=== PATIENT | male | born 1970 | race African-American/Black ===

== ENCOUNTER 2019-02-16 09:04 | Inpatient (IN) | payer OTHER ==
[2019-02-16 09:51] VITALS: BMI 36.4
--- NOTE | 2019-02-16 10:18 | HP ---
CIWA Score Nausea/Vomitin Muscle Tremors: 2 Anxiety: 2 Agitation: 2 Paroxysmal Sweats: 1-Minimal Palms Moist Orientation: 0-Oriented Tacttile Disturbances: 1-Very Mild Itch/Numbness Auditory Disturbances: 1-Very Mild Visual Disturbances: 0-None Headache: 2-Mild CIWA-Ar Total Score: 13 - Admission Criteria OASAS Guidelines: Admission for Medically Managed Detox: Requires at least one of the followin. CIWA greater than 12 2. Seizures within the past 24 hours 3. Delirium tremens within the past 24 hours 4. Hallucinations within the past 24 hours 5. Acute intervention needed for co occurring medical disorder 6. Acute intervention needed for co occurring psychiatric disorder 7. Severe withdrawal that cannot be handled at a lower level of care (continued vomiting, continued diarrhea, abnormal vital signs) requiring intravenous medication and/or fluids 8. Admission ROS [facility] - HPI Chief Complaint: i need help to stop drinking alcohol,cocaine,xanax,marijuana Allergies/Adverse Reactions: Allergies Allergy/AdvReac Type Severity Reaction Status Date / Time No Known Allergies Allergy Verified 02/16/19 09:46 History of Present Illness: this 48 years old male with alcohol,cocaine,marijuana and xanax dependence seeking detox,withdrawal symptom, multiple admissions in detox,last 04/18 did not recall facility keep relapsing syncope nicotine dependence 1/2 pack ,requesting nicotine gum insomnia longest sobriety 18 months plan for rehab after detox - Ebola screening Have you traveled outside of the country in the last 21 days: No Have you had contact with anyone from an Ebola affected area: No Do you have a fever: No - Review of Systems Constitutional: Loss of Appetite, Malaise, Night Sweats, Changes in sleep, Weakness EENT: reports: Nose Congestion Respiratory: reports: No Symptoms reported GI: reports: Nausea, Poor Appetite, Abdominal cramping : reports: No Symptoms Reported Musculoskeletal: reports: Back Pain, Muscle Pain Integumentary: reports: Dryness Neuro: reports: Headache, Tremors Endocrine: reports: No Symptoms Reported Hematology: reports: No Symptoms Reported Psychiatric: reports: No Sypmtoms Reported, Judgement Intact, Mood/Affect Appropiate, Orientated x3, other (insomnia) Other Systems: Reviewed and Negative Patient History - Patient Medical History Hx Anemia: No Hx Asthma: No Hx Chronic Obstructive Pulmonary Disease (COPD): No Hx Cancer: No Hx Cardiac Disorders: No Hx Congestive Heart Failure: No Hx Hypertension: No Hx Hypercholesterolemia: No Hx Pacemaker: No HX Cerebrovascular Accident: No Hx Seizures: No Hx Dementia: No Hx Diabetes: No Hx Gastrointestinal Disorders: No Hx Liver Disease: No Hx Genitourinary Disorders: No Hx Sexually Transmitted Disorders: No Hx Renal Disease (ESRD): No Hx Thyroid Disease: No Hx Human Immunodeficiency Virus (HIV): No (last 12/20 negative) Hx Hepatitis C: No Hx Depression: No Hx Suicide Attempt: No Hx Bipolar Disorder: No Hx Schizophrenia: No Other Medical History: no suicidal,no homicidal,insomnia - Patient Surgical History Past Surgical History: No Hx Neurologic Surgery: No Hx Cataract Extraction: No Hx Cardiac Surgery: No Hx Lung Surgery: No Hx Breast Surgery: No Hx Breast Biopsy: No Hx Appendectomy: Yes (1983) Hx Cholecystectomy: No Hx Genitourinary Surgery: No Hx Section: No Hx Orthopedic Surgery: No Anesthesia Reaction: No - PPD History Previous Implant?: Yes Documented Results: Negative w/o proof Implanted On Prior R Admission?: Yes Date: 09/03/13 Results: 0mm PPD to be Administered?: Yes - Smoking Cessation Smoking history: Current every day smoker Have you smoked in the past 12 months: Yes Aproximately how many cigarettes per day: 10 Hx Chewing Tobacco Use: No Initiated information on smoking cessation: Yes 'Breaking Loose' booklet given: 02/16/19 - Substance & Tx. History Hx Alcohol Use: Yes Hx Substance Use: Yes Substance Use Type: Alcohol, Cocaine, Marijuana, Tranquilizers - Substances abused Alcohol Substance route: Oral Frequency: Daily Amount used: 11/05 Jackie 2pt. brandi Age of first use: 18 Date of last use: 02/15/19 Cocaine Substance route: Smoking Frequency: Daily Amount used: $200 Age of first use: 23 Date of last use: 02/15/19 Alprazolam (Xanax) Substance route: Oral Frequency: Daily Amount used: 4mg Age of first use: 47 Date of last use: 02/15/19 Marijuana/Hashish Substance route: Smoking Frequency: 3-6 times per week Amount used: 15$ Age of first use: 18 Date of last use: 02/14/19 Family Disease History - Family Disease History Family Disease History: Heart Disease: Mother (EMPHYSEMA-), Brother ([place]- ), Respiratory: Mother Admission Physical Exam [facility] - Vital Signs Vital Signs: Vital Signs - 24 hr 02/16/19 09:47 Temperature 97.2 F L Pulse Rate 72 Respiratory 18 Rate Blood Pressure 139/84 - Physical General Appearance: Yes: Moderate Distress, Tremorous, Irritable, Sweating, Anxious HEENTM: Yes: Normal ENT Inspection, JEFF, Pharynx Normal Respiratory: Yes: Lungs Clear, Normal Breath Sounds, No Respiratory Distress Neck: Yes: Within Normal Limits, Supple, Trachea in good position Breast: Yes: Within Normal Limits Cardiology: Yes: Within Normal Limits, Regular Rhythm, Regular Rate, S1, S2 Abdominal: Yes: Normal Bowel Sounds, Non Tender, Soft, Organomegaly Genitourinary: Yes: Within Normal Limits Back: Yes: Within Normal Limits, Muscle Spasm Musculoskeletal: Yes: full range of Motion, Back pain, Muscle Pain Extremities: Yes: Tremors 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 NML intact, Fully Oriented, Alert, Motor Strength 5/5 Integumentary: Yes: Dry Lymphatic: Yes: Within Normal Limits - Diagnostic (1) Alcohol dependence with uncomplicated withdrawal Current Visit: Yes Status: Acute (2) Cocaine dependence Current Visit: No Status: Chronic (3) Cannabis dependence Current Visit: Yes Status: Acute (4) Uncomplicated sedative, hypnotic or anxiolytic withdrawal Current Visit: Yes Status: Acute (5) Nicotine dependence Current Visit: Yes Status: Acute (6) Major depressive disorder, recurrent, moderate Current Visit: No Status: Acute (7) Posttraumatic stress disorder Current Visit: No Status: Acute (8) Insomnia Current Visit: Yes Status: Acute Cleared for Admission [facility] - Detox or Rehab [facility] Level of Care: Medically Managed Detox Regimen/Protocol: Valium Breathalyzer - Breathalyzer Breathalyzer: 0 Urine Drug Screen - Test Device Lot number: [id number] Expiration date: 01/29/20 - Control Is test valid?: Yes - Results Drug screen NEGATIVE: No Urine drug screen results: THC-Marijuana, [place]-Cocaine Inpatient Rehab Admission - Rehab Decision to Admit Inpatient rehab admission?: No
[2019-02-16] MEDS ORDERED: MENTHOL/PHENOL 1 EACH UD MM PRN (10:26)
[2019-02-16] MEDS ORDERED: IBUPROFEN 400 MG TABLET (FP) PO PRN (10:26)
[2019-02-16] MEDS ORDERED: MAGNESIUM HYDROX 2400MG/30ML ORAL SUSPENSION 30 ML CUP PO PRN (10:26)
[2019-02-16] MEDS ORDERED: MAGNESIUM CITRATE 300 ML BOTTLE PO PRN (10:26)
[2019-02-16] MEDS ORDERED: MELATONIN 5 MG TABLETS PO PRN (10:26)
[2019-02-16] MEDS ORDERED: METHOCARBAMOL 500 MG TABLET PO PRN (10:26)
[2019-02-16] MEDS ORDERED: BISMUTH SUBSALICYLATE 262 MG/15 ML BTL PO PRN (10:26)
[2019-02-16] MEDS ORDERED: ACETAMINOPHEN 325 MG TABLET (FP) PO PRN ×2 (10:26)
[2019-02-16] MEDS ORDERED: NICOTINE POLACRILEX 2 MG GUM BUC PRN (10:26)
[2019-02-16] MEDS ORDERED: MAG HYDROX/AL HYDROX/SIMETH 30 ML UNIT-DOSE CUP PO PRN (10:26)
[2019-02-16] MEDS: diazePAM 5 MG TABLET PO PRN (11:36)
[2019-02-16] MEDS: diazePAM 5 MG TABLET PO SCH ×2 (14:08→22:15)
[2019-02-16 14:39] LABS: HEMATOCRIT 45.1 % (35.4-49); HEMOGLOBIN 15.1 GM/dL (11.7-16.9); MCH 32.1 pg (25.7-33.7); MCHC 33.6 g/dl (32.0-35.9); MEAN CELL VOLUME 95.7 fl (80-96); MEAN PLT VOLUME 9.2 fl (7.5-11.1); PLATELET COUNT 229 K/MM3 (134-434); RBC 4.71 M/mm3 (4.00-5.60); RDW 14.9 % (11.9-15.9); WHITE BLOOD COUNT 11.2 K/mm3 (4.0-10.0)
[2019-02-16 14:49] LABS: ALBUMIN 3.7 g/dl (3.4-5.0); ALK PHOS 106 U/L (45-117); ANION GAP 5 MMOL/L (8-16); BILIRUBIN,TOTAL 0.6 mg/dL (0.2-1); BLOOD UREA NITROGEN 20 mg/dL (7-18); CHLORIDE 106 mmol/L (98-107); CO2 27 mmol/L (21-32); GLUCOSE,RANDOM 117 mg/dL (74-106); SGOT/AST 53 U/L (15-37); SGPT/ALT 57 U/L (13-61); SODIUM 137 mmol/L (136-145); TOT PROT 7.2 g/dl (6.4-8.2)
[2019-02-16 17:14] LABS: URINE APPEARANCE CLEAR; URINE BILIRUBIN NEGATIVE (NEGATIVE); URINE COLOR YELLOW; URINE GLUCOSE (UA) NEGATIVE (NEGATIVE); URINE KETONE NEGATIVE (NEGATIVE); URINE LEUK ESTERASE NEGATIVE (NEGATIVE); URINE NITRITE NEGATIVE (NEGATIVE); URINE PROTEIN NEGATIVE (NEGATIVE)
[2019-02-16] MEDS: THIAMINE HCL 100 MG TABLET (FP) PO SCH (22:14)
[2019-02-17] MEDS: diazePAM 5 MG TABLET PO SCH ×3 (06:05→22:10)
--- NOTE | 2019-02-17 08:20 | CONSULT ---
[facility] Psychiatric Consult - Data Date of interview: 02/17/19 Admission source: Self-referred Identifying data: Mr Carney is a 48 years old Black male, father of 5 children, unemployed receiving SSI, living in supportive housing seeking detox treatment for alcohol, cocaine, benzodiazepine and cannabis Substance Abuse History: Reports history of alcohol, cocaine, xanax and marijuana use. Refer to addiction counselor's summary for further information Medical History: Significant for history of appendectomy at age 14. Smokes 10 cigarettes daily Psychiatric History: Patient reports that his first psychiatric contact occured in 2005 when he was admitted to [facility] for severe depression following of a brother from a heart attack. He was diagnosed with MDD and prescribed Paxil 20 mg po daily, Wellbutrin 150 mg po daily and Trazadone 100 mg po HS. Reports 4 subsequent psychiatric admissions to [facility] x2, [facility] x2. Most recent admission was in 2010 to [facility] after her mother and another brother commited suicidal after her . Reports that he has not been receiving outpatient treatment nor taking psychotropic medications for years. Denies previous suicidal attempt. At present , denies depressive symptoms, S/H ideations. However, reports sleepig poorly Physical/Sexual Abuse/Trauma History: Denies history of emotional, physical or sexual abuse as well as DV relationship. No service Additional Comment: Reports history of 2 previous arrests including one felony conviction. No parole/probation currently Mental Status Exam - Mental Status Exam Alert and Oriented to: Time, Place, Person Cognitive Function: Fair Patient Appearance: Well Groomed Mood: Hopeful, Euthymic Affect: Constricted Patient Behavior: Cooperative Speech Pattern: Clear Voice Loudness: Normal Thought Process: Intact, Goal Oriented Thought Disorder: Not Present Hallucinations: Denies Suicidal Ideation: Denies Homicidal Ideation: Denies Insight/Judgement: Poor Sleep: Poorly Appetite: Good Muscle strength/Tone: Normal Gait/Station: Normal Psychiatric Findings - Problem List ([place] 1, 2,3) (1) MDD (major depressive disorder), recurrent episode, severe Current Visit: Yes Status: Chronic (2) Substance-induced sleep disorder Current Visit: Yes Status: Acute (3) Alcohol dependence with uncomplicated withdrawal Current Visit: Yes Status: Acute (4) Cocaine dependence Current Visit: Yes Status: Acute (5) Sedative, hypnotic or anxiolytic use, unspecified with withdrawal, uncomplicated Current Visit: Yes Status: Acute (6) Cannabis dependence Current Visit: Yes Status: Acute (7) Nicotine dependence Current Visit: Yes Status: Chronic - Initial Treatment Plan Initial Treatment Plan: 1) Start Belsomra 10 mg po HS prn for insomnia. 2) Continue inpatient detoxification
[2019-02-17] MEDS: PRENATAL VITAMINS W/ FOLIC ACID TABLET (FP) PO SCH (10:17)
--- NOTE | 2019-02-17 15:55 | PN ---
[facility] CIWA - CIWA Score Nausea/Vomitin-Mild Nausea/No Vomiting Muscle Tremors: 1-None Visible, but [place] Anxiety: 1-Mildly Anxious Agitation: 1-Slight > Activity Paroxysmal Sweats: 1-Minimal Palms Moist Orientation: 0-Oriented Tacttile Disturbances: 0-None Auditory Disturbances: 0-None Visual Disturbances: 7-Constant Hallucination [facility] Progress Note (SOAP) Subjective: pt doing well with detox protocol. no complaints today. Vital Signs - 24 hr 02/16/19 02/16/19 02/17/19 17:15 21:27 00:30 Temperature 97.7 F 97.9 F Pulse Rate 64 64 Respiratory 17 20 18 Rate Blood Pressure 131/72 131/68 02/17/19 02/17/19 02/17/19 03:30 06:00 11:19 Temperature 96.8 F L 97 F L Pulse Rate 51 L 76 Respiratory 18 20 18 Rate Blood Pressure 125/67 142/78 02/17/19 14:55 Temperature 98.9 F Pulse Rate 77 Respiratory 20 Rate Blood Pressure 119/72 Laboratory Tests 02/16/19 02/16/19 02/16/19 10:30 10:30 10:30 WBC 11.2 H RBC 4.71 Hgb 15.1 Hct 45.1 MCV 95.7 MCH 32.1 MCHC 33.6 RDW 14.9 Plt Count 229 MPV 9.2 Sodium 137 Potassium 4.0 Chloride 106 Carbon Dioxide 27 Anion Gap 5 L BUN 20 H Creatinine 1.0 Creat Clearance w eGFR 80.44 Random Glucose 117 H Calcium 9.0 Total Bilirubin 0.6 AST 53 H ALT 57 Alkaline Phosphatase 106 Total Protein 7.2 Albumin 3.7 Urine Color Urine Appearance Urine pH Ur Specific [place] Urine Protein Urine Glucose (UA) Urine Ketones Urine Blood Urine Nitrite Urine Bilirubin Urine Urobilinogen Ur Leukocyte Esterase RPR Titer Nonreactive HIV 1&2 Antibody Screen HIV P24 Antigen 02/16/19 02/16/19 10:30 12:54 WBC RBC Hgb Hct MCV MCH MCHC RDW Plt Count MPV Sodium Potassium Chloride Carbon Dioxide Anion Gap BUN Creatinine Creat Clearance w eGFR Random Glucose Calcium Total Bilirubin AST ALT Alkaline Phosphatase Total Protein Albumin Urine Color Yellow Urine Appearance Clear Urine pH 5.0 Ur Specific [place] 1.025 Urine Protein Negative Urine Glucose (UA) Negative Urine Ketones Negative Urine Blood Negative Urine Nitrite Negative Urine Bilirubin Negative Urine Urobilinogen 1.0 Ur Leukocyte Esterase Negative RPR Titer HIV 1&2 Antibody Screen Negative HIV P24 Antigen Negative a/p: continue detox protocol- pt without complaitns. labs and VS WNL
[2019-02-17] MEDS: diazePAM 5 MG TABLET PO PRN (19:42)
[2019-02-17] MEDS: THIAMINE HCL 100 MG TABLET (FP) PO SCH (22:10)
[2019-02-17] MEDS: SUVOREXANT 10 MG TABLET PO PRN (22:12)
[2019-02-18] MEDS ORDERED: diazePAM 5 MG TABLET PO ONE (06:00)
[2019-02-18] MEDS: PRENATAL VITAMINS W/ FOLIC ACID TABLET (FP) PO SCH (10:09)
[2019-02-18] MEDS: diazePAM 5 MG TABLET PO PRN ×3 (13:20→22:23)
--- NOTE | 2019-02-18 15:29 | DS ---
[facility] Detox Discharge Summary Admission Date: 02/16/19 Discharge Date: 02/18/19 - History Present History: Alcohol Dependence, Cannabis Dependence, Cocaine Dependence Additional Comments: Pt is discharged to [facility] for continued management. Pt is medically stable for rehab. Pertinent Past History: H/o alcohol, cocaine, marijuana and xanas abuse. - Physical Exam Results Vital Signs: Vital Signs Temperature 98.3 F 02/18/19 14:33 Pulse Rate 59 L 02/18/19 14:33 Respiratory Rate 16 02/18/19 14:33 Blood Pressure 146/80 02/18/19 14:33 O2 Sat by Pulse Oximetry (%) Laboratory Last Values WBC 11.2 K/mm3 (4.0-10.0) H 02/16/19 10:30 RBC 4.71 M/mm3 (4.00-5.60) 02/16/19 10:30 Hgb 15.1 GM/dL (11.7-16.9) 02/16/19 10:30 Hct 45.1 % (35.4-49) 02/16/19 10:30 MCV 95.7 fl (80-96) 02/16/19 10:30 MCH 32.1 pg (25.7-33.7) 02/16/19 10:30 MCHC 33.6 g/dl (32.0-35.9) 02/16/19 10:30 RDW 14.9 % (11.9-15.9) 02/16/19 10:30 Plt Count 229 K/MM3 (134-434) 02/16/19 10:30 MPV 9.2 fl (7.5-11.1) 02/16/19 10:30 Sodium 137 mmol/L (136-145) 02/16/19 10:30 Potassium 4.0 mmol/L (3.5-5.1) 02/16/19 10:30 Chloride 106 mmol/L (98-107) 02/16/19 10:30 Carbon Dioxide 27 mmol/L (21-32) 02/16/19 10:30 Anion Gap 5 MMOL/L (8-16) L 02/16/19 10:30 BUN 20 mg/dL (7-18) H 02/16/19 10:30 Creatinine 1.0 mg/dL (0.55-1.3) 02/16/19 10:30 Creat Clearance w eGFR 80.44 (>60) 02/16/19 10:30 Random Glucose 117 mg/dL (74-106) H 02/16/19 10:30 Calcium 9.0 mg/dL (8.5-10.1) 02/16/19 10:30 Total Bilirubin 0.6 mg/dL (0.2-1) 02/16/19 10:30 AST 53 U/L (15-37) H 02/16/19 10:30 ALT 57 U/L (13-61) 02/16/19 10:30 Alkaline Phosphatase 106 U/L (45-117) 02/16/19 10:30 Total Protein 7.2 g/dl (6.4-8.2) 02/16/19 10:30 Albumin 3.7 g/dl (3.4-5.0) 02/16/19 10:30 Urine Color Yellow 02/16/19 12:54 Urine Appearance Clear 02/16/19 12:54 Urine pH 5.0 (5.0-8.0) 02/16/19 12:54 Ur Specific [place] 1.025 (1.010-1.035) 02/16/19 12:54 Urine Protein Negative (NEGATIVE) 02/16/19 12:54 Urine Glucose (UA) Negative (NEGATIVE) 02/16/19 12:54 Urine Ketones Negative (NEGATIVE) 02/16/19 12:54 Urine Blood Negative (NEGATIVE) 02/16/19 12:54 Urine Nitrite Negative (NEGATIVE) 02/16/19 12:54 Urine Bilirubin Negative (NEGATIVE) 02/16/19 12:54 Urine Urobilinogen 1.0 mg/dL (0.2-1.0) 02/16/19 12:54 Ur Leukocyte Esterase Negative (NEGATIVE) 02/16/19 12:54 RPR Titer Nonreactive (NONREACTIVE) 02/16/19 10:30 HIV 1&2 Antibody Screen Negative 02/16/19 10:30 HIV P24 Antigen Negative 02/16/19 10:30 labs reviewed Pertinent Admission Physical Exam Findings: withdrawal symptoms - Treatment Hospital Course: Detox Protocol Followed, Detoxed Safely, Responded well, Discharged Condition Good, Rehab Referral Accepted Patient has Accepted a Rehab Referral to: [facility] - Medication Discharge Medications: Ambulatory Orders NK [No Known Home Medication] 02/16/19 - Diagnosis (1) Alcohol dependence with uncomplicated withdrawal Current Visit: Yes Status: Acute (2) Cannabis dependence Current Visit: Yes Status: Acute (3) Cocaine dependence Current Visit: Yes Status: Acute Qualifiers: Substance use status: uncomplicated Qualified Code(s): F14.20 - Cocaine dependence, uncomplicated (4) Sedative, hypnotic or anxiolytic use, unspecified with withdrawal, uncomplicated Current Visit: Yes Status: Acute (5) Substance-induced sleep disorder Current Visit: Yes Status: Acute (6) MDD (major depressive disorder), recurrent episode, severe Current Visit: Yes Status: Chronic - AMA Did Patient Leave Against Medical Advice: No
[2019-02-18] MEDS: THIAMINE HCL 100 MG TABLET (FP) PO SCH (22:21)
[2019-02-18] MEDS: SUVOREXANT 10 MG TABLET PO PRN (22:23)
[2019-02-19] MEDS: diazePAM 5 MG TABLET PO PRN (07:18)
[2019-02-19] MEDS: PRENATAL VITAMINS W/ FOLIC ACID TABLET (FP) PO SCH (10:35)
--- NOTE | 2019-02-19 14:56 | PN ---
[facility] CIWA - CIWA Score Nausea/Vomitin-Mild Nausea/No Vomiting Muscle Tremors: None Anxiety: 1-Mildly Anxious Agitation: 2 Paroxysmal Sweats: 2 Orientation: 0-Oriented Tacttile Disturbances: 0-None Auditory Disturbances: 0-None Visual Disturbances: 0-None Headache: 0-None Present CIWA-Ar Total Score: 6 S Progress Note (SOAP) Subjective: Stomachache, nausea, interrupted sleep Objective: 02/19/19 14:49 Last Vital Signs Temp Pulse Resp BP Pulse Ox 98.0 F 72 18 146/89 02/19/19 14:21 02/19/19 14:21 02/19/19 14:21 02/19/19 14:21 Laboratory Tests 02/16/19 02/16/19 02/16/19 10:30 10:30 10:30 WBC 11.2 H RBC 4.71 Hgb 15.1 Hct 45.1 MCV 95.7 MCH 32.1 MCHC 33.6 RDW 14.9 Plt Count 229 MPV 9.2 Sodium 137 Potassium 4.0 Chloride 106 Carbon Dioxide 27 Anion Gap 5 L BUN 20 H Creatinine 1.0 Creat Clearance w eGFR 80.44 Random Glucose 117 H Calcium 9.0 Total Bilirubin 0.6 AST 53 H ALT 57 Alkaline Phosphatase 106 Total Protein 7.2 Albumin 3.7 Urine Color Urine Appearance Urine pH Ur Specific [place] Urine Protein Urine Glucose (UA) Urine Ketones Urine Blood Urine Nitrite Urine Bilirubin Urine Urobilinogen Ur Leukocyte Esterase RPR Titer Nonreactive HIV 1&2 Antibody Screen HIV P24 Antigen 02/16/19 02/16/19 10:30 12:54 WBC RBC Hgb Hct MCV MCH MCHC RDW Plt Count MPV Sodium Potassium Chloride Carbon Dioxide Anion Gap BUN Creatinine Creat Clearance w eGFR Random Glucose Calcium Total Bilirubin AST ALT Alkaline Phosphatase Total Protein Albumin Urine Color Yellow Urine Appearance Clear Urine pH 5.0 Ur Specific [place] 1.025 Urine Protein Negative Urine Glucose (UA) Negative Urine Ketones Negative Urine Blood Negative Urine Nitrite Negative Urine Bilirubin Negative Urine Urobilinogen 1.0 Ur Leukocyte Esterase Negative RPR Titer HIV 1&2 Antibody Screen Negative HIV P24 Antigen Negative Labs reviewed: wbc 11.2, serum glucose 117, bun 20 Assessment: 02/19/19 14:51 Withdrawal symptoms Noted with leukocytosis, mild hyperglycemia and azotemia Plan: Continue detox Discharge patient tomorrow to [facility] Leukocytosis: asymptomatic, repeat CBC Hyperglycemia: repeat fasting glucose Azotemia: encouraged PO water hydration
[2019-02-19] MEDS: hydrOXYzine PAMOATE 25 MG CAPSULE (FP) PO PRN (18:06)
[2019-02-19] MEDS: THIAMINE HCL 100 MG TABLET (FP) PO SCH (22:00)
[2019-02-19] MEDS: SUVOREXANT 10 MG TABLET PO PRN (22:01)
[2019-02-20 09:37] LABS: BASO % 1.1 % (0-2.0); EOS % 4.1 % (0-4.5); HEMATOCRIT 42.8 % (35.4-49); HEMOGLOBIN 14.3 GM/dL (11.7-16.9); MCH 32.3 pg (25.7-33.7); MCHC 33.5 g/dl (32.0-35.9); MEAN CELL VOLUME 96.6 fl (80-96); MEAN PLT VOLUME 9.1 fl (7.5-11.1); MONO % 9.4 % (3.8-10.2); NEUT % 45.4 % (42.8-82.8); PLATELET COUNT 206 K/MM3 (134-434); RBC 4.43 M/mm3 (4.00-5.60); RDW 14.7 % (11.9-15.9); WHITE BLOOD COUNT 7.3 K/mm3 (4.0-10.0)
[2019-02-20] MEDS: PRENATAL VITAMINS W/ FOLIC ACID TABLET (FP) PO SCH (10:31)
[2019-02-20] MEDS: hydrOXYzine PAMOATE 25 MG CAPSULE (FP) PO PRN (10:32)
[2019-02-20 13:33] VITALS: BP 149/91; PULSE 70; TEMP 97.9
--- NOTE | 2019-02-20 19:56 | DS ---
[facility] Detox Discharge Summary Admission Date: 02/16/19 Discharge Date: 02/20/19 - History Present History: Alcohol Dependence, Cannabis Dependence, Cocaine Dependence Additional Comments: PATIENT GOING TO [facility] ([place] [place]) FOR AFTERCARE. PATIENT WAS DISCHARGED FROM DETOX UNIT TO BE TAKEN OVER TO REHAB UNIT IN STABLE MEDICAL CONDITION. Pertinent Past History: Nicotine Dependence, Major Depressive Disorder, Insomnia, History Of Post- Traumatic Stress Disorder, Insomnia. - Physical Exam Results Vital Signs: Vital Signs Temperature 97.9 F 02/20/19 13:32 Pulse Rate 70 02/20/19 13:32 Respiratory Rate 18 02/20/19 13:32 Blood Pressure 149/91 02/20/19 13:32 O2 Sat by Pulse Oximetry (%) Pertinent Admission Physical Exam Findings: WITHDRAWAL SYMPTOMS. Laboratory Tests 02/16/19 02/16/19 02/16/19 10:30 10:30 10:30 WBC 11.2 H RBC 4.71 Hgb 15.1 Hct 45.1 MCV 95.7 MCH 32.1 MCHC 33.6 RDW 14.9 Plt Count 229 MPV 9.2 Absolute Neuts (auto) Neutrophils % Lymphocytes % Monocytes % Eosinophils % Basophils % Nucleated RBC % Sodium 137 Potassium 4.0 Chloride 106 Carbon Dioxide 27 Anion Gap 5 L BUN 20 H Creatinine 1.0 Creat Clearance w eGFR 80.44 Random Glucose 117 H Fasting Glucose Calcium 9.0 Total Bilirubin 0.6 AST 53 H ALT 57 Alkaline Phosphatase 106 Total Protein 7.2 Albumin 3.7 Urine Color Urine Appearance Urine pH Ur Specific [place] Urine Protein Urine Glucose (UA) Urine Ketones Urine Blood Urine Nitrite Urine Bilirubin Urine Urobilinogen Ur Leukocyte Esterase RPR Titer Nonreactive HIV 1&2 Antibody Screen HIV P24 Antigen 02/16/19 02/16/19 02/20/19 10:30 12:54 07:45 WBC 7.3 RBC 4.43 Hgb 14.3 Hct 42.8 MCV 96.6 H MCH 32.3 MCHC 33.5 RDW 14.7 Plt Count 206 MPV 9.1 Absolute Neuts (auto) 3.3 Neutrophils % 45.4 Lymphocytes % 40.0 Monocytes % 9.4 Eosinophils % 4.1 Basophils % 1.1 Nucleated RBC % 0 Sodium Potassium Chloride Carbon Dioxide Anion Gap BUN Creatinine Creat Clearance w eGFR Random Glucose Fasting Glucose Calcium Total Bilirubin AST ALT Alkaline Phosphatase Total Protein Albumin Urine Color Yellow Urine Appearance Clear Urine pH 5.0 Ur Specific [place] 1.025 Urine Protein Negative Urine Glucose (UA) Negative Urine Ketones Negative Urine Blood Negative Urine Nitrite Negative Urine Bilirubin Negative Urine Urobilinogen 1.0 Ur Leukocyte Esterase Negative RPR Titer HIV 1&2 Antibody Screen Negative HIV P24 Antigen Negative 02/20/19 07:45 WBC RBC Hgb Hct MCV MCH MCHC RDW Plt Count MPV Absolute Neuts (auto) Neutrophils % Lymphocytes % Monocytes % Eosinophils % Basophils % Nucleated RBC % Sodium Potassium Chloride Carbon Dioxide Anion Gap BUN Creatinine Creat Clearance w eGFR Random Glucose Fasting Glucose 80 Calcium Total Bilirubin AST ALT Alkaline Phosphatase Total Protein Albumin Urine Color Urine Appearance Urine pH Ur Specific [place] Urine Protein Urine Glucose (UA) Urine Ketones Urine Blood Urine Nitrite Urine Bilirubin Urine Urobilinogen Ur Leukocyte Esterase RPR Titer HIV 1&2 Antibody Screen HIV P24 Antigen LABS NOTED. - Treatment Hospital Course: Detox Protocol Followed, Detoxed Safely, Responded well, Discharged Condition Good, Rehab Referral Accepted Patient has Accepted a Rehab Referral to: [facility] ([place], [place]). - Medication Discharge Medications: Ambulatory Orders NK [No Known Home Medication] 02/16/19 - Diagnosis (1) Alcohol dependence with uncomplicated withdrawal Status: Acute (2) Cannabis dependence Status: Acute (3) Cocaine dependence Status: Acute Qualifiers: Substance use status: uncomplicated Qualified Code(s): F14.20 - Cocaine dependence, uncomplicated (4) Insomnia Status: Acute Qualifiers: Insomnia type: unspecified Qualified Code(s): G47.00 - Insomnia, unspecified (5) Major depressive disorder, recurrent, moderate Status: Acute (6) Posttraumatic stress disorder Status: Acute (7) Sedative, hypnotic or anxiolytic use, unspecified with withdrawal, uncomplicated Status: Acute (8) Nicotine dependence Status: Chronic Qualifiers: Nicotine product type: cigarettes Substance use status: uncomplicated Qualified Code(s): F17.210 - Nicotine dependence, cigarettes, uncomplicated (9) Substance-induced sleep disorder Status: Acute - AMA Did Patient Leave Against Medical Advice: No
== END 2019-02-20 15:08 | disposition other institution (70) | DRG 774 ==
LOC: YASAS 09:04 → Y6N 10:44
PROVIDERS: ADMIT Surgery; ATTEND Surgery
PROC: HZ2ZZZZ Detoxification Services for Substance Abuse Treatment (ICD-10-PCS; principal; 2019-02-16)
DX: F10.230 Alcohol dependence with withdrawal, uncomplicated (principal); F14.20 Cocaine dependence, uncomplicated; F12.20 Cannabis dependence, uncomplicated; F13.10 Sedative, hypnotic or anxiolytic abuse, uncomplicated; F17.210 Nicotine dependence, cigarettes, uncomplicated; F33.2 Major depressive disorder, recurrent severe without psychotic features; F19.280 Other psychoactive substance dependence with psychoactive substance-induced anxiety disorder; F43.10 Post-traumatic stress disorder, unspecified; G47.00 Insomnia, unspecified; R73.9 Hyperglycemia, unspecified; D72.828 Other elevated white blood cell count
CPT/HCPCS: 36415; 80053; 81003; 82947; 85025; 85027; 86593; 87389

== ENCOUNTER 2019-02-20 15:26 | Inpatient (IN) | payer OTHER ==
--- NOTE | 2019-02-20 18:56 | HP ---
[facility] Rehab Assess/Revision - Admission History Admitted to Rehab from: [facility] Date of Admission to Rehab: 02/20/19 - Findings Detox History & Physical reviewed: Yes Concur with findings: Yes Inpatient Rehab Admission - Rehab Decision to Admit Inpatient rehab admission?: Yes - Initial Determination Are CD services needed?: Yes Free of communicable disease: Yes Not in need of hospitalization: Yes - Rehab Admission Criteria Previous failed treatment: Yes Poor recovery environment: Yes Comorbidities: Yes Lacks judgement: Yes Patient is meeting Inpatient Rehab admission criteria:: Yes
[2019-02-20] MEDS ORDERED: MAG HYDROX/AL HYDROX/SIMETH 30 ML UNIT-DOSE CUP PO PRN (18:58)
[2019-02-20] MEDS ORDERED: guaiFENesin 200 MG/10 ML 10 ML UNIT-DOSE CUPS PO PRN (18:58)
[2019-02-20] MEDS ORDERED: ACETAMINOPHEN 325 MG TABLET (FP) PO PRN (18:58)
[2019-02-20] MEDS ORDERED: IBUPROFEN 400 MG TABLET (FP) PO PRN (18:58)
[2019-02-20] MEDS ORDERED: P-EPHED 60MG/TRIPROLIDI 2.5MG TABLET PO PRN (18:58)
[2019-02-20] MEDS ORDERED: LOPERAMIDE HCL 2 MG CAPSULE PO PRN (18:58)
[2019-02-20] MEDS ORDERED: MAGNESIUM HYDROX 2400MG/30ML ORAL SUSPENSION 30 ML CUP PO PRN (18:58)
[2019-02-20] MEDS ORDERED: MENTHOL/PHENOL 1 EACH UD MM PRN (18:58)
[2019-02-20] MEDS ORDERED: MAGNESIUM CITRATE 300 ML BOTTLE PO PRN (18:58)
[2019-02-20] MEDS: MELATONIN 5 MG TABLETS PO PRN (21:07)
[2019-02-20] MEDS: hydrOXYzine PAMOATE 25 MG CAPSULE (FP) PO PRN (21:08)
[2019-02-20] MEDS: THIAMINE HCL 100 MG TABLET (FP) PO SCH (21:09)
[2019-02-21] MEDS: PRENATAL VITAMINS W/ FOLIC ACID TABLET (FP) PO SCH (10:11)
[2019-02-21] MEDS: NICOTINE 14 MG/24 HOURS TOPICAL PATCH TD SCH (10:11)
[2019-02-21] MEDS: hydrOXYzine PAMOATE 25 MG CAPSULE (FP) PO PRN (10:12)
--- NOTE | 2019-02-21 12:01 | CONSULT ---
[facility] Psychiatric Consult - Data Date of interview: 02/21/19 Admission source: 6N Identifying data: Mr Carney is a 48 years old Black male, father of 5 children, unemployed receiving SSI, living in supportive housing seeking detox treatment for alcohol, cocaine, benzodiazepine and cannabis Substance Abuse History: Reports history of alcohol, cocaine, xanax and marijuana use. Refer to addiction counselor's summary for further information Medical History: Significant for history of appendectomy at age 14. Smokes 10 cigarettes daily Psychiatric History: Patient was recently seen by bid writer on 02/17/19 while admitted to detox. He reports that his first psychiatric contact occured in 2005 when he was admitted to [facility] for severe depression following of a brother from a heart attack. He was diagnosed with MDD and prescribed Paxil 20 mg po daily, Wellbutrin 150 mg po daily and Trazadone 100 mg po HS. Reports 4 subsequent psychiatric admissions to [facility] x2, [facility] x2. Most recent admission was in 2010 to [facility] after her mother and another brother commited suicidal after her . Reports that he has not been receiving outpatient treatment nor taking psychotropic medications for years. When seen by bid writer on 02/17/19, he did not want to resume psychotropic medications. He only requested to be ordered some medication for insomnia. He was ordered Belsomra 10 mg po HS prn for insomnia. Denies previous suicidal attempt. At present, denies depressive symptoms, S/H ideations. However, reports sleepig poorly Physical/Sexual Abuse/Trauma History: Denies history of emotional, physical or sexual abuse as well as DV relationship. No service Additional Comment: Denies history of emotional, physical or sexual abuse as well as DV relationship. No service Mental Status Exam - Mental Status Exam Alert and Oriented to: Time, Place, Person Cognitive Function: Fair Patient Appearance: Well Groomed Mood: Anxious Affect: Appropriate Patient Behavior: Cooperative Speech Pattern: Clear Voice Loudness: Normal Thought Process: Intact Thought Disorder: Not Present Hallucinations: Denies Suicidal Ideation: Denies Homicidal Ideation: Denies Insight/Judgement: Fair Sleep: Poorly Appetite: Poor Muscle strength/Tone: Normal Gait/Station: Normal Psychiatric Findings - Problem List ([place] 1, 2,3) (1) MDD (major depressive disorder), recurrent episode, severe Current Visit: No Status: Chronic (2) Substance-induced anxiety disorder Current Visit: Yes Status: Acute (3) Substance-induced sleep disorder Current Visit: No Status: Acute (4) Alcohol dependence Current Visit: Yes Status: Acute (5) Cocaine dependence Current Visit: Yes Status: Acute (6) Sedative hypnotic or anxiolytic dependence Current Visit: Yes Status: Acute (7) Cannabis dependence Current Visit: Yes Status: Acute (8) Nicotine dependence Current Visit: Yes Status: Chronic - Initial Treatment Plan Initial Treatment Plan: 1) Continue Belsomra 10 mg po HS prn for insomnia. 2) Start Wellburtin XL 150 mg po daily and Hydroxyzine 50 mg po Q 4hrs prn for anxiey. 3) Continue inpatient rebabilitation
[2019-02-21] MEDS: hydrOXYzine PAMOATE 50 MG CAPSULE (FP) PO PRN ×2 (15:02→21:03)
[2019-02-21] MEDS: MELATONIN 5 MG TABLETS PO PRN (21:03)
[2019-02-21] MEDS: SUVOREXANT 10 MG TABLET PO PRN (21:03)
[2019-02-21] MEDS: THIAMINE HCL 100 MG TABLET (FP) PO SCH (21:07)
[2019-02-22] MEDS: PRENATAL VITAMINS W/ FOLIC ACID TABLET (FP) PO SCH (10:11)
[2019-02-22] MEDS: NICOTINE 14 MG/24 HOURS TOPICAL PATCH TD SCH (10:11)
[2019-02-22] MEDS: hydrOXYzine PAMOATE 50 MG CAPSULE (FP) PO PRN ×3 (10:12→21:04)
[2019-02-22] MEDS: SUVOREXANT 10 MG TABLET PO PRN (21:04)
[2019-02-22] MEDS: THIAMINE HCL 100 MG TABLET (FP) PO SCH (21:05)
[2019-02-22] MEDS: MELATONIN 5 MG TABLETS PO PRN (21:05)
[2019-02-23] MEDS: hydrOXYzine PAMOATE 50 MG CAPSULE (FP) PO PRN ×3 (10:05→21:05)
[2019-02-23] MEDS: NICOTINE 14 MG/24 HOURS TOPICAL PATCH TD SCH (10:05)
[2019-02-23] MEDS: PRENATAL VITAMINS W/ FOLIC ACID TABLET (FP) PO SCH (10:06)
--- NOTE | 2019-02-23 12:01 | PN ---
S Progress Note Note: PT REQUESTING DETOX ADMISSION LAB REVIEW. PT REPORTS HE HAS NO PCP AND HAS GONE TO [facility] IN THE PAST WHEN NEEDED. Vital Signs 02/23/19 06:26 Temperature 97.4 F L Pulse Rate 48 L Respiratory 18 Rate Blood Pressure 147/70 RANDOM GLUCOSE 117 MG/DL DENIES HX PREVIOUS ELEVATE BLOOD SUGAR A:BORDERLINE HYPERGLYCEMIA OBESITY PLAN:BGM X 3 DAYS STARTING 02/24/19 @07:00 DISCUSSED LIFESTYLE CHANGES WILL LIKE TO SEE A [employer] MANAGER HERE FOLLOW UP WITH PCP AT [facility] FOR MEDICAL MANAGEMENT AFTER DISCHARGE.
[2019-02-23] MEDS: MELATONIN 5 MG TABLETS PO PRN (21:05)
[2019-02-23] MEDS: SUVOREXANT 10 MG TABLET PO PRN (21:05)
[2019-02-23] MEDS: THIAMINE HCL 100 MG TABLET (FP) PO SCH (21:06)
[2019-02-24] MEDS: hydrOXYzine PAMOATE 50 MG CAPSULE (FP) PO PRN ×3 (09:46→21:34)
[2019-02-24] MEDS: NICOTINE 14 MG/24 HOURS TOPICAL PATCH TD SCH (09:46)
[2019-02-24] MEDS: PRENATAL VITAMINS W/ FOLIC ACID TABLET (FP) PO SCH (09:46)
--- NOTE | 2019-02-24 11:09 | PN ---
[facility] Progress Note Note: Patient not responding to Belsomra 10 mg at bedtime. will increase Belsomra dosage to 20 mg
[2019-02-24] MEDS: MELATONIN 5 MG TABLETS PO PRN (21:34)
[2019-02-24] MEDS: THIAMINE HCL 100 MG TABLET (FP) PO SCH (21:34)
[2019-02-24] MEDS: SUVOREXANT 10 MG TABLET PO PRN (21:35)
[2019-02-25] MEDS: NICOTINE 14 MG/24 HOURS TOPICAL PATCH TD SCH (09:44)
[2019-02-25] MEDS: hydrOXYzine PAMOATE 50 MG CAPSULE (FP) PO PRN ×2 (09:44→14:49)
[2019-02-25] MEDS: PRENATAL VITAMINS W/ FOLIC ACID TABLET (FP) PO SCH (09:44)
[2019-02-25] MEDS: NICOTINE POLACRILEX 2 MG GUM BUC PRN ×2 (09:45→18:49)
[2019-02-25] MEDS: MELATONIN 5 MG TABLETS PO PRN (21:05)
[2019-02-25] MEDS: THIAMINE HCL 100 MG TABLET (FP) PO SCH (21:05)
[2019-02-25] MEDS: SUVOREXANT 10 MG TABLET PO PRN (21:05)
[2019-02-26] MEDS: NICOTINE 14 MG/24 HOURS TOPICAL PATCH TD SCH (09:47)
[2019-02-26] MEDS: hydrOXYzine PAMOATE 50 MG CAPSULE (FP) PO PRN ×3 (09:47→21:03)
[2019-02-26] MEDS: PRENATAL VITAMINS W/ FOLIC ACID TABLET (FP) PO SCH (09:47)
[2019-02-26] MEDS: NICOTINE POLACRILEX 2 MG GUM BUC PRN (14:36)
[2019-02-26] MEDS: SUVOREXANT 10 MG TABLET PO PRN (21:02)
[2019-02-26] MEDS: THIAMINE HCL 100 MG TABLET (FP) PO SCH (21:03)
[2019-02-26] MEDS: MELATONIN 5 MG TABLETS PO PRN (21:03)
[2019-02-27] MEDS: NICOTINE 14 MG/24 HOURS TOPICAL PATCH TD SCH (09:27)
[2019-02-27] MEDS: PRENATAL VITAMINS W/ FOLIC ACID TABLET (FP) PO SCH (09:27)
[2019-02-27] MEDS: hydrOXYzine PAMOATE 50 MG CAPSULE (FP) PO PRN ×3 (09:29→21:14)
[2019-02-27] MEDS: SUVOREXANT 10 MG TABLET PO PRN (21:13)
[2019-02-27] MEDS: THIAMINE HCL 100 MG TABLET (FP) PO SCH (21:14)
[2019-02-27] MEDS: MELATONIN 5 MG TABLETS PO PRN (21:14)
[2019-02-27] MEDS ORDERED: SUVOREXANT 20 MG TABLET PO PRN (22:00)
[2019-02-28] MEDS: hydrOXYzine PAMOATE 50 MG CAPSULE (FP) PO PRN ×3 (09:47→21:11)
[2019-02-28] MEDS: PRENATAL VITAMINS W/ FOLIC ACID TABLET (FP) PO SCH (09:48)
[2019-02-28] MEDS: NICOTINE 14 MG/24 HOURS TOPICAL PATCH TD SCH (09:48)
[2019-02-28] MEDS: MELATONIN 5 MG TABLETS PO PRN (21:09)
[2019-02-28] MEDS: THIAMINE HCL 100 MG TABLET (FP) PO SCH (21:33)
[2019-03-01 06:47] VITALS: BP 151/91; PULSE 57; TEMP 97.5
--- NOTE | 2019-03-01 09:25 | PN ---
[facility] Progress Note Note: Patient is discharged today. Script for 30 days supply of Wellbutrin XL 150 mg po daily is electronicaly transmitted to [facility] at [address] [place], [place] [id number]
[2019-03-01] MEDS: NICOTINE 14 MG/24 HOURS TOPICAL PATCH TD SCH (09:34)
[2019-03-01] MEDS: PRENATAL VITAMINS W/ FOLIC ACID TABLET (FP) PO SCH (09:34)
--- NOTE | 2019-03-01 10:06 | PN ---
S Progress Note Note: PT REQUESTS FOR EARLY DISCHARGE DUE TO FAMILY ISSUES. PT MET WITH HIS COUNSELOR , RYAN MARINA AND HAS BEEN REFERRED TO [facility] ON [address] [place] [address] FOR CD AFTERCARE AND HEALTH SYSTEM FOR MEDICAL/PSYCH MANAGEMENT. PT IS ALERT O X 3. DENIES S/H/I. Home Medications Medication Instructions Recorded Bupropion HCl [Wellbutrin Xl -] 150 mg PO DAILY #30 tab.sr.24h 03/01/19 Vital Signs 03/01/19 03/01/19 03:30 06:46 Temperature 97.5 F L Pulse Rate 57 L Respiratory 18 20 Rate Blood Pressure 151/91 Laboratory Tests 02/24/19 02/25/19 02/26/19 06:43 06:49 06:42 POC Glucometer 103 90 74 02/27/19 02/28/19 03/01/19 06:06 06:50 06:36 POC Glucometer 82 103 100 NAD MEDICALLY STABLE PLAN:FOLLOW UP WITH CD AFTERCARE RECOMMENDATIONS. FOLLOW UP WITH PCP ABOVE WITHIN 1-2 WEEKS AFTER DISCHARGE.
== END 2019-03-01 09:55 | disposition home or self-care (01) | DRG 772 ==
LOC: YASAS 15:26 → Y5N 15:27
PROVIDERS: ADMIT Neuromusculoskeletal Medicine & OMM; ATTEND Neuromusculoskeletal Medicine & OMM
PROC: HZ42ZZZ Group Counseling for Substance Abuse Treatment, Cognitive-Behavioral (ICD-10-PCS; principal; 2019-02-20)
DX: F10.20 Alcohol dependence, uncomplicated (principal); F13.20 Sedative, hypnotic or anxiolytic dependence, uncomplicated; F14.20 Cocaine dependence, uncomplicated; F12.20 Cannabis dependence, uncomplicated; F17.210 Nicotine dependence, cigarettes, uncomplicated; F33.2 Major depressive disorder, recurrent severe without psychotic features; F19.280 Other psychoactive substance dependence with psychoactive substance-induced anxiety disorder; E66.9 Obesity, unspecified; Z68.38 Body mass index [BMI] 38.0-38.9, adult; R73.9 Hyperglycemia, unspecified
CPT/HCPCS: 82962

== ENCOUNTER 2019-09-18 12:34 | Inpatient (IN) | payer OTHER ==
[2019-09-18 13:40] VITALS: BMI 37.8
--- NOTE | 2019-09-18 15:28 | HP ---
CIWA Score - Admission Criteria [facility]ASAS Guidelines: Admission for Medically Managed Detox: Requires at least one of the followin. CIWA greater than 12 2. Seizures within the past 24 hours 3. Delirium tremens within the past 24 hours 4. Hallucinations within the past 24 hours 5. Acute intervention needed for co occurring medical disorder 6. Acute intervention needed for co occurring psychiatric disorder 7. Severe withdrawal that cannot be handled at a lower level of care (continued vomiting, continued diarrhea, abnormal vital signs) requiring intravenous medication and/or fluids 8. Admitting History and Physical - Admission History of Present Illness: Pt is a 49 yo M with PMHX of Nicotine Dependence, Major Depressive Disorder, Insomnia, Post-Traumatic Stress Disorder, Insomnia who abuses ETOH, crack, mrijuana, xanax Wants rehab from alcohol, crack and xanax used all of them last on 2018. Longest time sober 18 months, 2013, had done outpt meetings Got PPD test in [facility], wants HIV and Hep C test ETOH Never had seizures, started at 19years Last use Sep 12 2019- came in from [facility] detox had been [facility] since Sep [facility] Sniffing and smoking Never had Hep C test Had been using about 200 dollars worth of crack per day Started to use at 23 years old xanax used 4mg daily Started use at 47 years Nicotine- 1/2 PPD for 20 years, Last cigarette today, does not want the patch, did not use the patch in [facility] Social Hx Alone Family- Children 30, 27,25,23, 21 All live in [place], in touch 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 No problem [facility] [place] 1997 for possession of cocaine for 12 months Last HIV test 08/2018 Heterosexual History Source: Patient, Medical Record Limitations to Obtaining History: No Limitations - Past Surgical History Past Surgical History: Yes: Appendectomy (1983) - Smoking History Smoking history: Current every day smoker Have you smoked in the past 12 months: Yes Aproximately how many cigarettes per day: 10 - Alcohol/Substance Use Hx Alcohol Use: Yes History of Substance Use: reports: Cocaine, Marijuana, Tranquilizers - Social History Usual Living Arrangement: Yes: Alone Do you think of yourself as: Straight/Heterosexual ADL: Independent History of Recent Travel: No Admission ROS [facility] - HPI Allergies/Adverse Reactions: Allergies Allergy/AdvReac Type Severity Reaction Status Date / Time No Known Allergies Allergy Verified 09/18/19 13:33 - Ebola screening Have you traveled outside of the country in the last 21 days: No Have you had contact with anyone from an Ebola affected area: No Do you have a fever: No - Review of Systems Constitutional: No Symptoms Reported EENT: reports: No Symptoms Reported Respiratory: reports: No Symptoms reported Cardiac: reports: No Symptoms Reported GI: reports: No Symptoms Reported : reports: No Symptoms Reported Musculoskeletal: reports: No Symptoms Reported Integumentary: reports: No Symptoms Reported Neuro: reports: No Symptoms reported Endocrine: reports: No Symptoms Reported Hematology: reports: No Symptoms Reported Psychiatric: reports: No Sypmtoms Reported Patient History - Patient Medical History Hx Anemia: No Hx Asthma: No Hx Chronic Obstructive Pulmonary Disease (COPD): No Hx Cancer: No Hx Cardiac Disorders: No Hx Congestive Heart Failure: No Hx Hypertension: No Hx Hypercholesterolemia: No Hx Pacemaker: No HX Cerebrovascular Accident: No Hx Seizures: No Hx Dementia: No Hx Diabetes: No Hx Gastrointestinal Disorders: No Hx Liver Disease: No Hx Genitourinary Disorders: No Hx Sexually Transmitted Disorders: No Hx Renal Disease (ESRD): No Hx Thyroid Disease: No Hx Human Immunodeficiency Virus (HIV): No (last 12/20 negative) Hx Hepatitis C: No Hx Depression: Yes Hx Suicide Attempt: No Hx Bipolar Disorder: No Hx Schizophrenia: No - Patient Surgical History Past Surgical History: No Hx Neurologic Surgery: No Hx Cataract Extraction: No Hx Cardiac Surgery: No Hx Lung Surgery: No Hx Breast Surgery: No Hx Breast Biopsy: No Hx Appendectomy: Yes (1983) Hx Cholecystectomy: No Hx Genitourinary Surgery: No Hx Section: No Hx Orthopedic Surgery: No Anesthesia Reaction: No - PPD History Date: 02/18/19 Results: 0mm - Smoking Cessation Smoking history: Current every day smoker Have you smoked in the past 12 months: Yes Aproximately how many cigarettes per day: 10 Hx Chewing Tobacco Use: No Initiated information on smoking cessation: Yes 'Breaking Loose' booklet given: 09/18/19 - Substance & Tx. History Hx Alcohol Use: Yes Hx Substance Use: Yes Substance Use Type: Alcohol, Cocaine, Tranquilizers Hx Substance Use Treatment: Yes - Substances abused Alcohol Substance route: Oral Frequency: Daily Amount used: 11/05 Jackie, 2pt. vodka Age of first use: 18 Date of last use: 09/12/19 Cocaine Substance route: Smoking Frequency: Daily Amount used: $200 Age of first use: 23 Date of last use: 09/12/19 Alprazolam (Xanax) Substance route: Oral Frequency: Daily Amount used: 4mg Age of first use: 47 Date of last use: 09/12/19 Marijuana/Hashish Substance route: Smoking Frequency: 3-6 times per week Amount used: $10 Age of first use: 18 Date of last use: 09/08/19 Admission Physical Exam [facility] - Vital Signs Vital Signs: Vital Signs - 24 hr 09/18/19 13:34 Temperature 97.0 F L Pulse Rate 83 Respiratory 18 Rate Blood Pressure 142/88 - Physical General Appearance: Yes: No Apparent Distress HEENTM: Yes: Within Normal Limits Respiratory: Yes: Within Normal Limits Neck: Yes: Within Normal Limits Breast: Yes: Breast Exam Deferred Cardiology: Yes: Within Normal Limits Abdominal: Yes: Within Normal Limits Genitourinary: Yes: Within Normal Limits Back: Yes: Within Normal Limits Musculoskeletal: Yes: Within Normal Limits Extremities: Yes: Within Normal Limits Neurological: Yes: Within Normal Limits Integumentary: Yes: Within Normal Limits Lymphatic: Yes: Within Normal Limits - Diagnostic (1) Cannabis dependence Current Visit: No Status: Acute (2) Cocaine dependence Current Visit: No Status: Acute (3) Chronic alcoholism Current Visit: No Status: Chronic Cleared for Admission [facility] - Detox or Rehab [facility] Level of Care: Medically Supervised Claeared for Rehab Admission: Yes Screened but not Admitted - Documentation of Visit Screened but not Admitted: No Breathalyzer - Breathalyzer Breathalyzer: 0 Urine Drug Screen - Test Device Lot number: [id number] Expiration date: 05/30/21 - Control Is test valid?: Yes - Results Drug screen NEGATIVE: No Urine drug screen results: BZO-Benzodiazepines Inpatient Rehab Admission - Rehab Decision to Admit Inpatient rehab admission?: Yes - Initial Determination Are CD services needed?: Yes Free of communicable disease: Yes Not in need of hospitalization: Yes - Rehab Admission Criteria Previous failed treatment: Yes Poor recovery environment: Yes Comorbidities: Yes Lacks judgement: Yes Patient is meeting Inpatient Rehab admission criteria:: Yes
--- NOTE | 2019-09-18 15:38 | PN ---
Teaching Attending Note Name of Resident: Ellie May ATTENDING PHYSICIAN STATEMENT I saw and evaluated the patient. I reviewed the resident's note and discussed the case with the resident. I agree with the resident's findings and plan as documented. SUBJECTIVE: 49 yo with h/o of alcohol use disorder completed detox at [facility] for rehab OBJECTIVE: Vital Signs - 24 hr 09/18/19 13:34 Temperature 97.0 F L Pulse Rate 83 Respiratory 18 Rate Blood Pressure 142/88 no tremors ASSESSMENT AND PLAN: Alcohol use disorder- completed detox here for rehab
[2019-09-18] MEDS ORDERED: hydrOXYzine PAMOATE 25 MG CAPSULE (FP) PO PRN (15:39)
[2019-09-18] MEDS ORDERED: guaiFENesin 200 MG/10 ML 10 ML UNIT-DOSE CUPS PO PRN (15:39)
[2019-09-18] MEDS ORDERED: MAGNESIUM HYDROX 2400MG/30ML ORAL SUSPENSION 30 ML CUP PO PRN (15:39)
[2019-09-18] MEDS ORDERED: IBUPROFEN 400 MG TABLET (FP) PO PRN (15:39)
[2019-09-18] MEDS ORDERED: LOPERAMIDE HCL 2 MG CAPSULE PO PRN (15:39)
[2019-09-18] MEDS ORDERED: ACETAMINOPHEN 325 MG TABLET (FP) PO PRN (15:39)
[2019-09-18] MEDS ORDERED: MAGNESIUM CITRATE 300 ML BOTTLE PO PRN (15:39)
[2019-09-18] MEDS ORDERED: MENTHOL/PHENOL 1 EACH UD MM PRN (15:39)
[2019-09-18] MEDS ORDERED: MAG HYDROX/AL HYDROX/SIMETH 30 ML UNIT-DOSE CUP PO PRN (15:39)
[2019-09-18] MEDS ORDERED: P-EPHED 60MG/TRIPROLIDI 2.5MG TABLET PO PRN (15:39)
[2019-09-18] MEDS: MELATONIN 5 MG TABLETS PO PRN (21:02)
[2019-09-18] MEDS: THIAMINE HCL 100 MG TABLET (FP) PO SCH (21:02)
--- NOTE | 2019-09-19 06:59 | CONSULT ---
[facility] Psychiatric Consult - Data Date of interview: 09/19/19 Admission source: Self-referred Identifying data: Mr Carney is a 48 years old Black male, father of 5 children, unemployed receiving SSI, living in supportive housing admitted to this facility on 09/1819 for inpatient rehabilitation treatment for alcohol, cocaine, benzodiazepine and cannabis Substance Abuse History: Reports history of alcohol, cocaine, xanax and marijuana use. Refer to addiction counselor's summary for further information Medical History: Significant for dyslipidemia, obesity and history of appendectomy at age 14. Smokes 10 cigarettes daily Psychiatric History: Patient is well known to mortgage or loan underwriter from multiple encounters during previous admissions. Historical narrative remains consistent. He reports that his first psychiatric contact occured in 2005 when he was admitted to [facility] for severe depression following of a brother from a heart attack. He was diagnosed with MDD and prescribed Paxil 20 mg po daily, Wellbutrin 150 mg po daily and Trazadone 100 mg po HS. Reports 5 subsequent psychiatric admissions to [facility] x2, [facility] x2. Most recent admission was in August [address] [facility] for depression. He was discharged on Wellbutrin XL 150 mg/day and Seroquel 200 mg/hs and referred to [facility] clinic on [address] [facility] in [place], [place]. He said that he relapsed soon after discharge and instead of going to that clinic he was admitted to detox.. Denies previous suicidal attempt. At present, denies depressive symptoms, S/H ideations. However, reports sleeping poorly Physical/Sexual Abuse/Trauma History: Denies history of emotional, physical or sexual abuse as well as DV relationship. No service Additional Comment: Denies history of emotional, physical or sexual abuse as well as DV relationship. No service Mental Status Exam - Mental Status Exam Alert and Oriented to: Time, Place, Person Cognitive Function: Fair Patient Appearance: Well Groomed Mood: Hopeful, Euthymic Patient Behavior: Cooperative Speech Pattern: Clear Voice Loudness: Normal Thought Process: Intact Thought Disorder: Not Present Hallucinations: Denies Suicidal Ideation: Denies Homicidal Ideation: Denies Insight/Judgement: Poor Sleep: Poorly Appetite: Good Muscle strength/Tone: Normal Gait/Station: Normal Psychiatric Findings - Problem List ([place] 1, 2,3) (1) MDD (major depressive disorder), recurrent episode, severe Current Visit: No Status: Chronic (2) Substance-induced sleep disorder Current Visit: Yes Status: Acute (3) Alcohol dependence Current Visit: Yes Status: Acute (4) Cocaine dependence Current Visit: No Status: Acute (5) Cannabis dependence Current Visit: No Status: Acute (6) Sedative, hypnotic or anxiolytic abuse Current Visit: Yes Status: Acute (7) Nicotine dependence Current Visit: No Status: Chronic Qualifiers: Nicotine product type: cigarettes Substance use status: uncomplicated Qualified Code(s): F17.210 - Nicotine dependence, cigarettes, uncomplicated (8) HLD (hyperlipidemia) Current Visit: Yes Status: Chronic (9) Obesity (BMI 30-39.9) Current Visit: No Status: Chronic - Initial Treatment Plan Initial Treatment Plan: 1) Continue Wellburtrin XL 150 mg po daily and Seroquel 200 mg po HS. 2) Continue inpatient rehabilitation
[2019-09-19 09:55] LABS: HEMATOCRIT 45.6 % (35.4-49); HEMOGLOBIN 15.3 GM/dL (11.7-16.9); MCH 31.6 pg (25.7-33.7); MCHC 33.6 g/dl (32.0-35.9); MEAN CELL VOLUME 93.9 fl (80-96); MEAN PLT VOLUME 8.8 fl (7.5-11.1); PLATELET COUNT 246 K/MM3 (134-434); RBC 4.85 M/mm3 (4.00-5.60); RDW 15.4 % (11.9-15.9); WHITE BLOOD COUNT 8.5 K/mm3 (4.0-10.0)
[2019-09-19] MEDS: PRENATAL VITAMINS W/ FOLIC ACID TABLET (FP) PO SCH (09:59)
[2019-09-19] MEDS: hydrOXYzine PAMOATE 50 MG CAPSULE (FP) PO PRN ×2 (10:00→21:29)
[2019-09-19 10:13] LABS: PH,URINE 5.5 (5.0-8.0); URINE APPEARANCE CLEAR; URINE BILIRUBIN NEGATIVE (NEGATIVE); URINE COLOR YELLOW; URINE GLUCOSE (UA) NEGATIVE (NEGATIVE); URINE KETONE NEGATIVE (NEGATIVE); URINE LEUK ESTERASE NEGATIVE (NEGATIVE); URINE NITRITE NEGATIVE (NEGATIVE); URINE PROTEIN NEGATIVE (NEGATIVE); URINE UROBILINOGEN 0.2 mg/dL (0.2-1.0)
[2019-09-19 10:16] LABS: ALBUMIN 3.4 g/dl (3.4-5.0); BILIRUBIN,TOTAL 0.3 mg/dL (0.2-1); BLOOD UREA NITROGEN 18.3 mg/dL (7-18); CALCIUM 9.5 mg/dL (8.5-10.1); TOT PROT 6.5 g/dl (6.4-8.2)
--- NOTE | 2019-09-19 11:12 | PN ---
[facility] Progress Note Note: Pt is a new pt with a hx of alcohol, crack & xanax use disorder admitted to rehab from [facility] on 09/18/19. Pt has a hx of HLD,MDD and Obesity. Pt requesting for lipid profile today. Pt was seen for psych consult this morning for Hx of Depression and Insomnia. Laboratory Tests 09/18/19 09/19/19 09/19/19 07:55 07:55 07:55 WBC 8.5 RBC 4.85 Hgb 15.3 Hct 45.6 MCV 93.9 MCH 31.6 MCHC 33.6 RDW 15.4 Plt Count 246 MPV 8.8 Sodium 140 Potassium 4.0 Chloride 109 H Carbon Dioxide 24 Anion Gap 7 L BUN 18.3 H Creatinine 1.0 Est GFR (CKD-EPI)AfAm 103.42 Est GFR (CKD-EPI)NonAf 89.23 Random Glucose 89 Calcium 9.5 Total Bilirubin 0.3 AST 38 H ALT 56 Alkaline Phosphatase 83 Total Protein 6.5 Albumin 3.4 Urine Color Urine Appearance Urine pH Ur Specific [place] Urine Protein Urine Glucose (UA) Urine Ketones Urine Blood Urine Nitrite Urine Bilirubin Urine Urobilinogen Ur Leukocyte Esterase RPR Titer HIV 1&2 Antibody Screen Negative HIV P24 Antigen Negative 09/19/19 09/19/19 07:55 08:00 WBC RBC Hgb Hct MCV MCH MCHC RDW Plt Count MPV Sodium Potassium Chloride Carbon Dioxide Anion Gap BUN Creatinine Est GFR (CKD-EPI)AfAm Est GFR (CKD-EPI)NonAf Random Glucose Calcium Total Bilirubin AST ALT Alkaline Phosphatase Total Protein Albumin Urine Color Yellow Urine Appearance Clear Urine pH 5.5 Ur Specific [place] 1.023 Urine Protein Negative Urine Glucose (UA) Negative Urine Ketones Negative Urine Blood Negative Urine Nitrite Negative Urine Bilirubin Negative Urine Urobilinogen 0.2 Ur Leukocyte Esterase Negative RPR Titer Nonreactive HIV 1&2 Antibody Screen HIV P24 Antigen Vital Signs - 24 hr 09/18/19 09/18/19 09/19/19 13:34 17:30 00:30 Temperature 97.0 F L 98.0 F Pulse Rate 83 75 Respiratory 18 20 18 Rate Blood Pressure 142/88 133/74 09/19/19 09/19/19 03:30 06:45 Temperature 97.3 F L Pulse Rate 70 Respiratory 18 18 Rate Blood Pressure 141/83 Alert o x 3 nad oob ambulating with steady gait A/P New pt stable Maintain safety and continue rehab
[2019-09-19] MEDS: ASPIRIN 81 MG CHEWABLE TABLETS PO SCH (11:47)
[2019-09-19 15:11] LABS: CHOLESTEROL 193 mg/dL (50-200); HDL CHOLESTEROL 69 mg/dL (40-60); LDL CHOLESTEROL (ONLY SJRH) 99 mg/dL (5-100); TRIGLYCERIDES 153 mg/dL (0-150)
[2019-09-19] MEDS: MELATONIN 5 MG TABLETS PO PRN (21:28)
[2019-09-19] MEDS: THIAMINE HCL 100 MG TABLET (FP) PO SCH (21:28)
[2019-09-19] MEDS: QUEtiapine FUMARATE 200 MG TABLET PO SCH (21:29)
[2019-09-20] MEDS: PRENATAL VITAMINS W/ FOLIC ACID TABLET (FP) PO SCH (10:41)
[2019-09-20] MEDS: ASPIRIN 81 MG CHEWABLE TABLETS PO SCH (10:41)
[2019-09-20] MEDS: MELATONIN 5 MG TABLETS PO PRN (21:09)
[2019-09-20] MEDS: hydrOXYzine PAMOATE 50 MG CAPSULE (FP) PO PRN (21:09)
[2019-09-20] MEDS: THIAMINE HCL 100 MG TABLET (FP) PO SCH (21:09)
[2019-09-20] MEDS: QUEtiapine FUMARATE 200 MG TABLET PO SCH (21:10)
[2019-09-21] MEDS: PRENATAL VITAMINS W/ FOLIC ACID TABLET (FP) PO SCH (10:44)
[2019-09-21] MEDS: ASPIRIN 81 MG CHEWABLE TABLETS PO SCH (10:45)
[2019-09-21] MEDS: hydrOXYzine PAMOATE 50 MG CAPSULE (FP) PO PRN ×2 (10:45→21:19)
[2019-09-21] MEDS: QUEtiapine FUMARATE 200 MG TABLET PO SCH (21:18)
[2019-09-21] MEDS: THIAMINE HCL 100 MG TABLET (FP) PO SCH (21:18)
[2019-09-21] MEDS: MELATONIN 5 MG TABLETS PO PRN (21:18)
[2019-09-22] MEDS: ASPIRIN 81 MG CHEWABLE TABLETS PO SCH (10:32)
[2019-09-22] MEDS: PRENATAL VITAMINS W/ FOLIC ACID TABLET (FP) PO SCH (10:32)
[2019-09-22] MEDS: hydrOXYzine PAMOATE 50 MG CAPSULE (FP) PO PRN ×2 (13:37→21:40)
[2019-09-22] MEDS: MELATONIN 5 MG TABLETS PO PRN (21:39)
[2019-09-22] MEDS: THIAMINE HCL 100 MG TABLET (FP) PO SCH (21:39)
[2019-09-22] MEDS: QUEtiapine FUMARATE 200 MG TABLET PO SCH (21:39)
[2019-09-23] MEDS: ASPIRIN 81 MG CHEWABLE TABLETS PO SCH (10:22)
[2019-09-23] MEDS: PRENATAL VITAMINS W/ FOLIC ACID TABLET (FP) PO SCH (10:22)
[2019-09-23] MEDS: hydrOXYzine PAMOATE 50 MG CAPSULE (FP) PO PRN ×2 (10:23→21:03)
[2019-09-23] MEDS: QUEtiapine FUMARATE 200 MG TABLET PO SCH (21:03)
[2019-09-23] MEDS: MELATONIN 5 MG TABLETS PO PRN (21:03)
[2019-09-23] MEDS: THIAMINE HCL 100 MG TABLET (FP) PO SCH (21:04)
[2019-09-24] MEDS: hydrOXYzine PAMOATE 50 MG CAPSULE (FP) PO PRN ×3 (10:35→21:05)
[2019-09-24] MEDS: PRENATAL VITAMINS W/ FOLIC ACID TABLET (FP) PO SCH (10:35)
[2019-09-24] MEDS: ASPIRIN 81 MG CHEWABLE TABLETS PO SCH (10:36)
[2019-09-24] MEDS: THIAMINE HCL 100 MG TABLET (FP) PO SCH (21:05)
[2019-09-24] MEDS: QUEtiapine FUMARATE 200 MG TABLET PO SCH (21:05)
[2019-09-24] MEDS: MELATONIN 5 MG TABLETS PO PRN (21:06)
[2019-09-25] MEDS: PRENATAL VITAMINS W/ FOLIC ACID TABLET (FP) PO SCH (10:55)
[2019-09-25] MEDS: ASPIRIN 81 MG CHEWABLE TABLETS PO SCH (10:55)
[2019-09-25] MEDS: hydrOXYzine PAMOATE 50 MG CAPSULE (FP) PO PRN (10:55)
--- NOTE | 2019-09-25 14:46 | PN ---
[facility] Progress Note Note: Patient reports sleeping poorly despite taking Seroquel 200 mg/hs, Vistaril 50 mg/hs and Melatonin. Hypnotic properties of Belsomra discussed with patient and he agreed to try it
[2019-09-25] MEDS: QUEtiapine FUMARATE 200 MG TABLET PO SCH (21:56)
[2019-09-25] MEDS: THIAMINE HCL 100 MG TABLET (FP) PO SCH (21:56)
[2019-09-25] MEDS: SUVOREXANT 10 MG TABLET PO PRN (21:57)
[2019-09-26] MEDS: MELATONIN 5 MG TABLETS PO PRN (00:17)
[2019-09-26] MEDS: PRENATAL VITAMINS W/ FOLIC ACID TABLET (FP) PO SCH (11:56)
[2019-09-26] MEDS: hydrOXYzine PAMOATE 50 MG CAPSULE (FP) PO PRN (11:56)
[2019-09-26] MEDS: ASPIRIN 81 MG CHEWABLE TABLETS PO SCH (11:56)
[2019-09-26] MEDS: SUVOREXANT 10 MG TABLET PO PRN (22:03)
[2019-09-26] MEDS: THIAMINE HCL 100 MG TABLET (FP) PO SCH (22:03)
[2019-09-26] MEDS: QUEtiapine FUMARATE 200 MG TABLET PO SCH (22:03)
[2019-09-27] MEDS: hydrOXYzine PAMOATE 50 MG CAPSULE (FP) PO PRN ×3 (02:10→22:01)
[2019-09-27] MEDS: ASPIRIN 81 MG CHEWABLE TABLETS PO SCH (11:05)
[2019-09-27] MEDS: PRENATAL VITAMINS W/ FOLIC ACID TABLET (FP) PO SCH (11:05)
--- NOTE | 2019-09-27 14:02 | PN ---
[facility] Progress Note Note: Patient reports not responding to Belsomra 10 mg po HS prn for insomnia. Will increase Belsomra dosage to 15 mg po HS prn
[2019-09-27] MEDS ORDERED: SUVOREXANT 15 MG TABLET PO PRN (22:00)
[2019-09-27] MEDS: QUEtiapine FUMARATE 200 MG TABLET PO SCH (22:00)
[2019-09-27] MEDS: THIAMINE HCL 100 MG TABLET (FP) PO SCH (22:02)
[2019-09-28] MEDS: ASPIRIN 81 MG CHEWABLE TABLETS PO SCH (10:24)
[2019-09-28] MEDS: PRENATAL VITAMINS W/ FOLIC ACID TABLET (FP) PO SCH (10:24)
--- NOTE | 2019-09-28 11:47 | PN ---
S Progress Note Note: Patoent is scheduled for discharge tomorrow. Scripts for 30 days supply of medications( Wellbutrin XL 150 mg/day, Seroquel 200 mg/hs) will be elelectronically transmitted to [facility] at [address] [place], [place] [id number]
[2019-09-28] MEDS: hydrOXYzine PAMOATE 50 MG CAPSULE (FP) PO PRN (21:45)
[2019-09-28] MEDS: QUEtiapine FUMARATE 200 MG TABLET PO SCH (21:45)
[2019-09-28] MEDS: MELATONIN 5 MG TABLETS PO PRN (21:45)
[2019-09-28] MEDS: THIAMINE HCL 100 MG TABLET (FP) PO SCH (21:46)
[2019-09-29] MEDS: hydrOXYzine PAMOATE 50 MG CAPSULE (FP) PO PRN ×2 (02:41→07:08)
[2019-09-29 08:23] VITALS: BP 120/79; PULSE 66; TEMP 97.3
--- NOTE | 2019-09-29 08:45 | DS ---
[facility] Rehab Discharge Summary - [facility] Rehab Discharge Summary Admission Date: 09/18/19 Discharge Date: 09/29/19 - History Present History: Alcohol dependence, Cannabis dependence, Cocaine dependence, Sedative dependence Pertinent Past History: History of Present Illness: Pt is a 49 yo M with PMHX of Nicotine Dependence, Major Depressive Disorder, Insomnia, Post-Traumatic Stress Disorder, Insomnia who abuses ETOH, crack, mrijuana, xanax Longest time sober 18 months, 2013, had done outpt meetings Got PPD test in [facility], wants HIV and Hep C test ETOH Never had seizures, started at 19years Last use Sep 12 2019- came in from 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 for possession of cocaine for 12 months Last HIV test 08/2018 Heterosexual - Discharge Physical Exam Vital Signs: Vital Signs Temperature 97.3 F L 09/29/19 08:22 Pulse Rate 66 09/29/19 08:22 Respiratory Rate 18 09/29/19 08:22 Blood Pressure 120/79 09/29/19 08:22 O2 Sat by Pulse Oximetry (%) Pertinent Admission Physical Exam Findings: Physical General Appearance: No Apparent Distress HEENTM: Normocephalic, PERRLA Respiratory: lungs clear Neck: supple, Cardiology: S1S2 Abdominal: +BS Musculoskeletal: Full weight bearing, steady gait, Neurological: CN 2-12 intact - Treatment Discharge Condition: Outpatient referral accepted (Will go to [facility].medically stable for discharge) - Medication Discharge Medications: Ambulatory Orders Bupropion HCl [Wellbutrin Xl -] 150 mg PO DAILY #30 tab.sr.24h 09/28/19 Quetiapine Fumarate [Seroquel -] 200 mg PO HS #30 tablet 09/28/19 Thiamine HCl [Vitamin B1 -] 100 mg PO HS #30 tablet 09/28/19 Aspirin [ASA -] 81 mg PO DAILY #30 tab.chew 09/29/19 - Medication-Assisted Treatment (MAT) Medication-Assisted Treatment (MAT): No - Discharge Instructions Diet, activity, other medical instructions: Diet: as tolerated Activity: as tolerated Other medical instructions: Please follow up with aftercare referral. - Diagnosis (1) Alcohol dependence Current Visit: Yes Status: Acute (2) Cannabis dependence Current Visit: No Status: Chronic (3) Cocaine dependence Current Visit: No Status: Chronic - Follow-up Referral Minutes to complete discharge: 20 - AMA Did Patient Leave Against Medical Advice: No
== END 2019-09-29 09:15 | disposition home or self-care (01) | DRG 774 ==
LOC: YASAS 12:34 → Y5N 16:35
PROVIDERS: ADMIT Neuromusculoskeletal Medicine & OMM; ATTEND Neuromusculoskeletal Medicine & OMM
PROC: HZ2ZZZZ Detoxification Services for Substance Abuse Treatment (ICD-10-PCS; principal; 2019-09-18)
DX: F10.20 Alcohol dependence, uncomplicated (principal); F13.20 Sedative, hypnotic or anxiolytic dependence, uncomplicated; F14.20 Cocaine dependence, uncomplicated; F12.20 Cannabis dependence, uncomplicated; F17.210 Nicotine dependence, cigarettes, uncomplicated; F33.9 Major depressive disorder, recurrent, unspecified; F19.282 Other psychoactive substance dependence with psychoactive substance-induced sleep disorder; F43.10 Post-traumatic stress disorder, unspecified; E78.5 Hyperlipidemia, unspecified; E66.9 Obesity, unspecified; Z68.37 Body mass index [BMI] 37.0-37.9, adult
CPT/HCPCS: 36415; 80053; 80061; 81003; 83721; 85027; 86593; 86803; 87389

== ENCOUNTER 2019-12-14 12:03 | Inpatient (IN) | payer OTHER ==
--- NOTE | 2019-12-14 13:18 | BHS.RME ---
Substance Use & Tx History - Substance Use History Alcohol Substance amount: 4-5 pints vodka Frequency of use: Daily Substance route: Oral Date of Last Use: 12/13/19 Benzodiazepines Substance amount: xanax 1 mg Frequency of use: Less than 3 times per week Substance route: Oral Date of Last Use: 12/11/19 Cocaine (Powder) Substance amount: 1 gm Frequency of use: Daily Substance route: Smoking Date of Last Use: 12/13/19 Physical/Psych/Mental Status - Behavior General Behavior: Increased activity (restlessness, agitation) - Cooperativeness Cooperativeness: Cooperative - Thinking Thought Processes: Tight, Logical, Goal Directed Thought content: Future oriented - Physical Health Problems Is patient presently having any pain?: No Does patient presently have any injuries (include location): No Does patient currently have a fever: No Is patient : No CIWA Nausea/Vomitin-Mild Nausea/No Vomiting Muscle Tremors: 4-Moderate,w/Arms Extend Anxiety: 3 Agitation: 2 Paroxysmal Sweats: 4-Forehead w/Sweat Beads Orientation: 2-Disoriented Date<2 days Tacttile Disturbances: 0-None Auditory Disturbances: 0-None Visual Disturbances: 0-None Headache: 1-Very Mild CIWA-Ar Total Score: 17
[2019-12-14 13:38] VITALS: BMI 41.1
--- NOTE | 2019-12-14 13:59 | HP ---
CIWA Score Nausea/Vomitin-Mild Nausea/No Vomiting Muscle Tremors: 4-Moderate,w/Arms Extend Anxiety: 3 Agitation: 2 Paroxysmal Sweats: 4-Forehead w/Sweat Beads Orientation: 0-Oriented Tacttile Disturbances: 0-None Auditory Disturbances: 0-None Visual Disturbances: 1-Very Mild Sensitivity (Meets criteria for detox admission ) Headache: 1-Very Mild CIWA-Ar Total Score: 16 - Admission Criteria OASAS Guidelines: Admission for Medically Managed Detox: Requires at least one of the followin. CIWA greater than 12 2. Seizures within the past 24 hours 3. Delirium tremens within the past 24 hours 4. Hallucinations within the past 24 hours 5. Acute intervention needed for co occurring medical disorder 6. Acute intervention needed for co occurring psychiatric disorder 7. Severe withdrawal that cannot be handled at a lower level of care (continued vomiting, continued diarrhea, abnormal vital signs) requiring intravenous medication and/or fluids 8. Admitting History and Physical - Admission History of Present Illness: This is a 49 year old male with no significant PMH. He presents to the clinic for detox from alcohol. Has been drinking alcohol since the age of 19, drinks 4-5 pints of vodka daily, last drink was last night 4-5 pints of vodka. No seizures, no history of blackouts. Smokes 1/2 ppd, started smoking at the age of 16 Started using cocaine at the age of 23, uses 1-2g per day, last use yesterday. Only smokes, no snorting or IV use Started using Xanax last year, 2gm pills 3x week. Last use was 2 days ago, 1 pill. Started using marijuana at the age of 20, smokes 1-2 blunts per week. 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 - Lives with sister, does not use any substances - Has 5 kids and 10 grandkids BENITO: - AOx3 - Lungs: Clear B/L - CVS: RRR - Abdomen: Soft, ND, NT - Extremities: No edema, pulses intact - COTTON GROWER: Motor 5/5, sensations intact - Past Surgical History Past Surgical History: Yes: Appendectomy (1983) - Smoking History Smoking history: Current every day smoker Have you smoked in the past 12 months: Yes Aproximately how many cigarettes per day: 10 - Alcohol/Substance Use Hx Alcohol Use: Yes History of Substance Use: reports: Cocaine, Marijuana, Tranquilizers - Social History ADL: Independent History of Recent Travel: No Admission ROS [facility] Allergies/Adverse Reactions: Allergies Allergy/AdvReac Type Severity Reaction Status Date / Time No Known Allergies Allergy Verified 12/14/19 13:31 Patient History - Patient Medical History Hx Anemia: No Hx Asthma: No Hx Chronic Obstructive Pulmonary Disease (COPD): No Hx Cancer: No Hx Cardiac Disorders: No Hx Congestive Heart Failure: No Hx Hypertension: No Hx Hypercholesterolemia: No Hx Pacemaker: No HX Cerebrovascular Accident: No Hx Seizures: No Hx Dementia: No Hx Diabetes: No Hx Gastrointestinal Disorders: No Hx Liver Disease: No Hx Genitourinary Disorders: No Hx Sexually Transmitted Disorders: No Hx Renal Disease (ESRD): No Hx Thyroid Disease: No Hx Human Immunodeficiency Virus (HIV): No (last 12/20 negative) Hx Hepatitis C: No Hx Depression: No Hx Suicide Attempt: No Hx Bipolar Disorder: No Hx Schizophrenia: No - Patient Surgical History Past Surgical History: No Hx Neurologic Surgery: No Hx Cataract Extraction: No Hx Cardiac Surgery: No Hx Lung Surgery: No Hx Breast Surgery: No Hx Breast Biopsy: No Hx Appendectomy: Yes (1983) Hx Cholecystectomy: No Hx Genitourinary Surgery: No Hx Section: No Hx Orthopedic Surgery: No Anesthesia Reaction: No - PPD History Previous Implant?: Yes Implanted On Prior R Admission?: Yes Date: 02/18/19 Results: 0mm - Smoking Cessation Smoking history: Current every day smoker Have you smoked in the past 12 months: Yes Aproximately how many cigarettes per day: 10 Cigars Per Day: 0 Hx Chewing Tobacco Use: No Initiated information on smoking cessation: Yes 'Breaking Loose' booklet given: 12/14/19 - Substances abused Alcohol Substance route: Oral Frequency: Daily Amount used: 4-5 pints of vodka Age of first use: 19 Date of last use: 12/13/19 Alprazolam (Xanax) Other (specify): 2mg Substance route: Oral Frequency: 3-6 times per week Amount used: 2mg Age of first use: 48 Date of last use: 12/12/19 Cocaine Substance route: Smoking Frequency: Daily Amount used: 1-2 grams Age of first use: 23 Date of last use: 12/13/19 Admission Physical Exam [facility] - Vital Signs Vital Signs: Vital Signs - 24 hr 12/14/19 13:31 Temperature 96.6 F L Pulse Rate 76 Respiratory 18 Rate Blood Pressure 171/97 H Breathalyzer - Breathalyzer Breathalyzer: 0 Urine Drug Screen - Test Device Lot number: [id number] Expiration date: 09/25/21 - Control Is test valid?: Yes - Results Drug screen NEGATIVE: No Urine drug screen results: THC-Marijuana, [place]-Cocaine, BZO-Benzodiazepines Inpatient Rehab Admission - Rehab Decision to Admit Inpatient rehab admission?: No
[2019-12-14] MEDS ORDERED: MAGNESIUM CITRATE 300 ML BOTTLE PO PRN (14:04)
[2019-12-14] MEDS ORDERED: ACETAMINOPHEN 325 MG TABLET (FP) PO PRN ×2 (14:04)
[2019-12-14] MEDS ORDERED: MAG HYDROX/AL HYDROX/SIMETH 30 ML UNIT-DOSE CUP PO PRN (14:04)
[2019-12-14] MEDS ORDERED: MAGNESIUM HYDROX 2400MG/30ML ORAL SUSPENSION 30 ML CUP PO PRN (14:04)
[2019-12-14] MEDS ORDERED: hydrOXYzine PAMOATE 25 MG CAPSULE (FP) PO PRN (14:04)
[2019-12-14] MEDS ORDERED: BISMUTH SUBSALICYLATE 524 MG/30 ML UD PO PRN (14:04)
[2019-12-14] MEDS ORDERED: METHOCARBAMOL 500 MG TABLET PO PRN (14:04)
[2019-12-14] MEDS ORDERED: IBUPROFEN 400 MG TABLET (FP) PO PRN (14:04)
[2019-12-14] MEDS ORDERED: MENTHOL/PHENOL 1 EACH UD MM PRN (14:04)
[2019-12-14] MEDS ORDERED: NICOTINE POLACRILEX 2 MG GUM BUC PRN (14:09)
[2019-12-14] MEDS: chlordiazePOXIDE HCL 25 MG CAPSULE PO PRN (15:25)
[2019-12-14] MEDS: chlordiazePOXIDE HCL 25 MG CAPSULE PO SCH ×2 (17:16→22:17)
[2019-12-14 17:26] LABS: HEMATOCRIT 45.2 % (35.4-49); HEMOGLOBIN 15.2 GM/dL (11.7-16.9); MCH 31.6 pg (25.7-33.7); MCHC 33.7 g/dl (32.0-35.9); MEAN CELL VOLUME 93.9 fl (80-96); MEAN PLT VOLUME 8.7 fl (7.5-11.1); PLATELET COUNT 255 K/MM3 (134-434); RBC 4.81 M/mm3 (4.00-5.60); RDW 15.3 % (11.9-15.9); WHITE BLOOD COUNT 11.1 K/mm3 (4.0-10.0)
[2019-12-14 17:41] LABS: ALBUMIN 3.7 g/dl (3.4-5.0); BILIRUBIN,TOTAL 0.7 mg/dL (0.2-1); BLOOD UREA NITROGEN 21.1 mg/dL (7-18); CREATININE 1.1 mg/dL (0.55-1.3); POTASSIUM 4.1 mmol/L (3.5-5.1); TOT PROT 7.1 g/dl (6.4-8.2)
[2019-12-14] MEDS: MELATONIN 5 MG TABLETS PO PRN (22:17)
[2019-12-14] MEDS: THIAMINE HCL 100 MG TABLET (FP) PO SCH (22:17)
[2019-12-15] MEDS: chlordiazePOXIDE HCL 25 MG CAPSULE PO SCH ×4 (05:35→22:20)
--- NOTE | 2019-12-15 07:51 | PN ---
Teaching Attending Note Name of Resident: Yareli Cantrell ATTENDING PHYSICIAN STATEMENT I saw and evaluated the patient. I reviewed the resident's note and discussed the case with the resident. I agree with the resident's findings and plan as documented. SUBJECTIVE: OBJECTIVE: ASSESSMENT AND PLAN:
[2019-12-15] MEDS: PRENATAL VITAMINS W/ FOLIC ACID TABLET (FP) PO SCH (10:14)
--- NOTE | 2019-12-15 11:48 | PN ---
S CIWA - CIWA Score Nausea/Vomitin-Mild Nausea/No Vomiting Muscle Tremors: 3 Anxiety: 2 Agitation: 2 Paroxysmal Sweats: 2 Orientation: 0-Oriented Tacttile Disturbances: 0-None Auditory Disturbances: 0-None Visual Disturbances: 0-None Headache: 1-Very Mild CIWA-Ar Total Score: 11 S Progress Note (SOAP) Subjective: pt was admitted yesterday for alcohol detox- says he is feeling "so-so" O: Vital Signs - 24 hr 12/14/19 12/14/19 12/15/19 13:31 20:37 00:11 Temperature 96.6 F L 97.5 F L Pulse Rate 76 77 Respiratory 18 16 18 Rate Blood Pressure 171/97 H 123/72 12/15/19 12/15/19 12/15/19 03:39 07:12 09:12 Temperature 96.3 F L 97.2 F L Pulse Rate 61 84 Respiratory 18 18 18 Rate Blood Pressure 120/68 150/81 Laboratory Tests 12/14/19 12/14/19 12/14/19 14:30 14:30 14:30 WBC 11.1 H RBC 4.81 Hgb 15.2 Hct 45.2 MCV 93.9 MCH 31.6 MCHC 33.7 RDW 15.3 Plt Count 255 MPV 8.7 Sodium 142 Potassium 4.1 Chloride 111 H Carbon Dioxide 24 Anion Gap 6 L BUN 21.1 H Creatinine 1.1 Est GFR (CKD-EPI)AfAm 92.16 Est GFR (CKD-EPI)NonAf 79.52 Random Glucose 50 L Calcium 9.0 Total Bilirubin 0.7 AST 34 ALT 52 Alkaline Phosphatase 87 Total Protein 7.1 Albumin 3.7 RPR Titer HIV 1&2 Antibody Screen Cancelled HIV P24 Antigen Cancelled 12/14/19 14:30 WBC RBC Hgb Hct MCV MCH MCHC RDW Plt Count MPV Sodium Potassium Chloride Carbon Dioxide Anion Gap BUN Creatinine Est GFR (CKD-EPI)AfAm Est GFR (CKD-EPI)NonAf Random Glucose Calcium Total Bilirubin AST ALT Alkaline Phosphatase Total Protein Albumin RPR Titer Nonreactive HIV 1&2 Antibody Screen HIV P24 Antigen a/p AUD- pt feels like he is in withdrawal- d/w pt prn meds that he can access in between standing detox dose of meds
[2019-12-15] MEDS: chlordiazePOXIDE HCL 25 MG CAPSULE PO PRN (13:14)
[2019-12-15] MEDS: MELATONIN 5 MG TABLETS PO PRN (22:20)
[2019-12-15] MEDS: THIAMINE HCL 100 MG TABLET (FP) PO SCH (22:20)
[2019-12-16] MEDS: chlordiazePOXIDE HCL 25 MG CAPSULE PO SCH ×4 (05:14→22:06)
--- NOTE | 2019-12-16 09:53 | PN ---
S CIWA - CIWA Score Nausea/Vomitin-Mild Nausea/No Vomiting Muscle Tremors: 2 Anxiety: 1-Mildly Anxious Agitation: 1-Slight > Activity Paroxysmal Sweats: No Perspiration Orientation: 0-Oriented Tacttile Disturbances: 0-None Auditory Disturbances: 0-None Visual Disturbances: 0-None Headache: 0-None Present CIWA-Ar Total Score: 5 B[facility] Progress Note (SOAP) Subjective: pt would like sleeping med O: Vital Signs - 24 hr 12/15/19 12/15/19 12/15/19 13:07 16:51 20:32 Temperature 97.9 F 98.1 F 98.1 F Pulse Rate 78 86 72 Respiratory 20 18 18 Rate Blood Pressure 138/80 151/90 145/84 12/16/19 12/16/19 12/16/19 00:39 04:17 05:11 Temperature 96.8 F L Pulse Rate 71 Respiratory 20 20 18 Rate Blood Pressure 116/94 12/16/19 09:38 Temperature 97.7 F Pulse Rate 74 Respiratory 18 Rate Blood Pressure 159/97 Laboratory Tests 12/14/19 12/14/19 12/14/19 14:30 14:30 14:30 WBC 11.1 H RBC 4.81 Hgb 15.2 Hct 45.2 MCV 93.9 MCH 31.6 MCHC 33.7 RDW 15.3 Plt Count 255 MPV 8.7 Sodium 142 Potassium 4.1 Chloride 111 H Carbon Dioxide 24 Anion Gap 6 L BUN 21.1 H Creatinine 1.1 Est GFR (CKD-EPI)AfAm 92.16 Est GFR (CKD-EPI)NonAf 79.52 Random Glucose 50 L Calcium 9.0 Total Bilirubin 0.7 AST 34 ALT 52 Alkaline Phosphatase 87 Total Protein 7.1 Albumin 3.7 RPR Titer HIV 1&2 Ag/Ab, 4th Gen HIV 1&2 Antibody Screen Cancelled HIV P24 Antigen Cancelled 12/14/19 12/14/19 14:30 14:30 WBC RBC Hgb Hct MCV MCH MCHC RDW Plt Count MPV Sodium Potassium Chloride Carbon Dioxide Anion Gap BUN Creatinine Est GFR (CKD-EPI)AfAm Est GFR (CKD-EPI)NonAf Random Glucose Calcium Total Bilirubin AST ALT Alkaline Phosphatase Total Protein Albumin RPR Titer Nonreactive HIV 1&2 Ag/Ab, 4th Gen Non reactive HIV 1&2 Antibody Screen HIV P24 Antigen a/p: AUD- continue detox protocol trazodone prn for insomnia
[2019-12-16] MEDS: PRENATAL VITAMINS W/ FOLIC ACID TABLET (FP) PO SCH (10:36)
[2019-12-16] MEDS: chlordiazePOXIDE HCL 25 MG CAPSULE PO PRN (13:37)
[2019-12-16] MEDS: THIAMINE HCL 100 MG TABLET (FP) PO SCH (22:06)
[2019-12-16] MEDS: traZODone HCL 50 MG TABLET (FP) PO PRN (22:51)
[2019-12-17] MEDS ORDERED: chlordiazePOXIDE HCL 10 MG CAPSULE PO PRN
[2019-12-17] MEDS: chlordiazePOXIDE HCL 10 MG CAPSULE PO SCH ×4 (05:12→22:28)
[2019-12-17] MEDS ORDERED: cloNIDine HCL 0.1 MG TABLET PO ONE (09:26)
[2019-12-17] MEDS: PRENATAL VITAMINS W/ FOLIC ACID TABLET (FP) PO SCH (09:32)
--- NOTE | 2019-12-17 11:06 | PN ---
S CIWA - CIWA Score Nausea/Vomitin-Mild Nausea/No Vomiting Muscle Tremors: 3 Anxiety: 2 Agitation: 0-Normal Activity Paroxysmal Sweats: 2 Orientation: 0-Oriented Tacttile Disturbances: 0-None Auditory Disturbances: 0-None Visual Disturbances: 0-None Headache: 2-Mild CIWA-Ar Total Score: 10 S Progress Note (SOAP) Subjective: Patient c/o anxiety, chills, nausea and headache. Admitted for ETOH withdrawal sx Objective: 12/17/19 11:03 Vital Signs Temperature 96.4 F L 12/17/19 05:11 Pulse Rate 64 12/17/19 05:11 Respiratory Rate 18 12/17/19 05:11 Blood Pressure 134/86 12/17/19 05:11 O2 Sat by Pulse Oximetry (%) Laboratory Tests 12/14/19 12/14/19 12/14/19 14:30 14:30 14:30 WBC 11.1 H RBC 4.81 Hgb 15.2 Hct 45.2 MCV 93.9 MCH 31.6 MCHC 33.7 RDW 15.3 Plt Count 255 MPV 8.7 Sodium 142 Potassium 4.1 Chloride 111 H Carbon Dioxide 24 Anion Gap 6 L BUN 21.1 H Creatinine 1.1 Est GFR (CKD-EPI)AfAm 92.16 Est GFR (CKD-EPI)NonAf 79.52 Random Glucose 50 L Calcium 9.0 Total Bilirubin 0.7 AST 34 ALT 52 Alkaline Phosphatase 87 Total Protein 7.1 Albumin 3.7 RPR Titer HIV 1&2 Ag/Ab, 4th Gen HIV 1&2 Antibody Screen Cancelled HIV P24 Antigen Cancelled 12/14/19 12/14/19 14:30 14:30 WBC RBC Hgb Hct MCV MCH MCHC RDW Plt Count MPV Sodium Potassium Chloride Carbon Dioxide Anion Gap BUN Creatinine Est GFR (CKD-EPI)AfAm Est GFR (CKD-EPI)NonAf Random Glucose Calcium Total Bilirubin AST ALT Alkaline Phosphatase Total Protein Albumin RPR Titer Nonreactive HIV 1&2 Ag/Ab, 4th Gen Non reactive HIV 1&2 Antibody Screen HIV P24 Antigen pe alert and oriented x 3 skin warm, mild truncal moisture +perrla, eoms intact bl ext full rom, mild tremors anxious Assessment: 12/17/19 11:05 etoh withdrawal sx elevated bp 148/88-reported by tech Plan: Continue detox will order clonidine 0.1mg po x one encourage fluids monitor clinically
[2019-12-17] MEDS: traZODone HCL 50 MG TABLET (FP) PO PRN (22:00)
[2019-12-17] MEDS: THIAMINE HCL 100 MG TABLET (FP) PO SCH (22:28)
[2019-12-18] MEDS: chlordiazePOXIDE HCL 10 MG CAPSULE PO SCH ×2 (05:03→17:53)
[2019-12-18] MEDS: PRENATAL VITAMINS W/ FOLIC ACID TABLET (FP) PO SCH (10:57)
--- NOTE | 2019-12-18 12:38 | PN ---
S CIWA - CIWA Score Nausea/Vomitin-Mild Nausea/No Vomiting Muscle Tremors: 2 Anxiety: 1-Mildly Anxious Agitation: 1-Slight > Activity Paroxysmal Sweats: No Perspiration Orientation: 0-Oriented Tacttile Disturbances: 0-None Auditory Disturbances: 0-None Visual Disturbances: 0-None Headache: 2-Mild CIWA-Ar Total Score: 7 S Progress Note (SOAP) Subjective: alert,anxious,interrupted sleep,pain in the body Objective: 12/18/19 12:38 Vital Signs Temperature 97.5 F L 12/18/19 08:50 Pulse Rate 74 12/18/19 08:50 Respiratory Rate 18 12/18/19 08:50 Blood Pressure 150/94 12/18/19 08:50 O2 Sat by Pulse Oximetry (%) 12/18/19 12:40 Laboratory Last Values WBC 11.1 K/mm3 (4.0-10.0) H 12/14/19 14:30 RBC 4.81 M/mm3 (4.00-5.60) 12/14/19 14:30 Hgb 15.2 GM/dL (11.7-16.9) 12/14/19 14:30 Hct 45.2 % (35.4-49) 12/14/19 14:30 MCV 93.9 fl (80-96) 12/14/19 14:30 MCH 31.6 pg (25.7-33.7) 12/14/19 14:30 MCHC 33.7 g/dl (32.0-35.9) 12/14/19 14:30 RDW 15.3 % (11.9-15.9) 12/14/19 14:30 Plt Count 255 K/MM3 (134-434) 12/14/19 14:30 MPV 8.7 fl (7.5-11.1) 12/14/19 14:30 Sodium 142 mmol/L (136-145) 12/14/19 14:30 Potassium 4.1 mmol/L (3.5-5.1) 12/14/19 14:30 Chloride 111 mmol/L (98-107) H 12/14/19 14:30 Carbon Dioxide 24 mmol/L (21-32) 12/14/19 14:30 Anion Gap 6 MMOL/L (8-16) L 12/14/19 14:30 BUN 21.1 mg/dL (7-18) H 12/14/19 14:30 Creatinine 1.1 mg/dL (0.55-1.3) 12/14/19 14:30 Est GFR (CKD-EPI)AfAm 92.16 12/14/19 14:30 Est GFR (CKD-EPI)NonAf 79.52 12/14/19 14:30 Random Glucose 50 mg/dL (74-106) L 12/14/19 14:30 Calcium 9.0 mg/dL (8.5-10.1) 12/14/19 14:30 Total Bilirubin 0.7 mg/dL (0.2-1) 12/14/19 14:30 AST 34 U/L (15-37) 12/14/19 14:30 ALT 52 U/L (13-61) 12/14/19 14:30 Alkaline Phosphatase 87 U/L (45-117) 12/14/19 14:30 Total Protein 7.1 g/dl (6.4-8.2) 12/14/19 14:30 Albumin 3.7 g/dl (3.4-5.0) 12/14/19 14:30 RPR Titer Nonreactive (NONREACTIVE) 12/14/19 14:30 HIV 1&2 Ag/Ab, 4th Gen Non reactive (Non Reactive) 12/14/19 14:30 HIV 1&2 Antibody Screen Cancelled 12/14/19 14:30 HIV P24 Antigen Cancelled 12/14/19 14:30 Assessment: 12/18/19 12:39 withdrawal symptom Plan: continue detox,bgm now initial glucose 50,discharge in am
[2019-12-18] MEDS ORDERED: traZODone HCL 50 MG TABLET (FP) PO SCH (23:15)
[2019-12-18] MEDS: THIAMINE HCL 100 MG TABLET (FP) PO SCH (23:22)
[2019-12-19] MEDS ORDERED: chlordiazePOXIDE HCL 10 MG CAPSULE PO ONE (05:00)
--- NOTE | 2019-12-19 09:40 | PN ---
S CIWA - CIWA Score Nausea/Vomitin-Mild Nausea/No Vomiting Muscle Tremors: 1-None Visible, but [place] Anxiety: 1-Mildly Anxious Agitation: 1-Slight > Activity Paroxysmal Sweats: No Perspiration Orientation: 0-Oriented Tacttile Disturbances: 1-Very Mild Itch/Numbness Auditory Disturbances: 0-None Visual Disturbances: 0-None Headache: 1-Very Mild CIWA-Ar Total Score: 6 BHS Progress Note (SOAP) Subjective: alert,irritable,anxious,interrupted sleep Objective: 12/19/19 09:43 Vital Signs Temperature 98.2 F 12/19/19 08:52 Pulse Rate 82 12/19/19 08:52 Respiratory Rate 19 12/19/19 08:52 Blood Pressure 162/83 12/19/19 08:52 O2 Sat by Pulse Oximetry (%) Assessment: 12/19/19 09:43 withdrawal symptom Plan: continue detox librium regimen,discharge in am
[2019-12-19] MEDS: PRENATAL VITAMINS W/ FOLIC ACID TABLET (FP) PO SCH (10:22)
--- NOTE | 2019-12-19 11:43 | PN ---
[facility] Progress Note Note: alert,feel better,no withdrawal symptom,stable for discharge to rehab today
--- NOTE | 2019-12-19 11:44 | DS ---
[facility] Detox Discharge Summary Admission Date: 12/14/19 Discharge Date: 12/19/19 - History Present History: Alcohol Dependence, Cocaine Dependence, Sedative Dependence Additional Comments: alert,oriented x 3 ambulation on the unit heart normal heart sound lung clear bilaterally no abdominal pain stable for discharge to rehab time spending on discharge summary 35 mins Pertinent Past History: depression - Physical Exam Results Vital Signs: Vital Signs Temperature 98.2 F 12/19/19 08:52 Pulse Rate 82 12/19/19 08:52 Respiratory Rate 19 12/19/19 08:52 Blood Pressure 162/83 12/19/19 08:52 O2 Sat by Pulse Oximetry (%) Pertinent Admission Physical Exam Findings: withdrawal signs and symptom Vital Signs Temperature 98.2 F 12/19/19 08:52 Pulse Rate 82 12/19/19 08:52 Respiratory Rate 19 12/19/19 08:52 Blood Pressure 162/83 12/19/19 08:52 O2 Sat by Pulse Oximetry (%) Laboratory Last Values WBC 11.1 K/mm3 (4.0-10.0) H 12/14/19 14:30 RBC 4.81 M/mm3 (4.00-5.60) 12/14/19 14:30 Hgb 15.2 GM/dL (11.7-16.9) 12/14/19 14:30 Hct 45.2 % (35.4-49) 12/14/19 14:30 MCV 93.9 fl (80-96) 12/14/19 14:30 MCH 31.6 pg (25.7-33.7) 12/14/19 14:30 MCHC 33.7 g/dl (32.0-35.9) 12/14/19 14:30 RDW 15.3 % (11.9-15.9) 12/14/19 14:30 Plt Count 255 K/MM3 (134-434) 12/14/19 14:30 MPV 8.7 fl (7.5-11.1) 12/14/19 14:30 Sodium 142 mmol/L (136-145) 12/14/19 14:30 Potassium 4.1 mmol/L (3.5-5.1) 12/14/19 14:30 Chloride 111 mmol/L (98-107) H 12/14/19 14:30 Carbon Dioxide 24 mmol/L (21-32) 12/14/19 14:30 Anion Gap 6 MMOL/L (8-16) L 12/14/19 14:30 BUN 21.1 mg/dL (7-18) H 12/14/19 14:30 Creatinine 1.1 mg/dL (0.55-1.3) 12/14/19 14:30 Est GFR (CKD-EPI)AfAm 92.16 12/14/19 14:30 Est GFR (CKD-EPI)NonAf 79.52 12/14/19 14:30 POC Glucometer 139 UNITS (80-120) 12/18/19 12:58 Random Glucose 50 mg/dL (74-106) L 12/14/19 14:30 Calcium 9.0 mg/dL (8.5-10.1) 12/14/19 14:30 Total Bilirubin 0.7 mg/dL (0.2-1) 12/14/19 14:30 AST 34 U/L (15-37) 12/14/19 14:30 ALT 52 U/L (13-61) 12/14/19 14:30 Alkaline Phosphatase 87 U/L (45-117) 12/14/19 14:30 Total Protein 7.1 g/dl (6.4-8.2) 12/14/19 14:30 Albumin 3.7 g/dl (3.4-5.0) 12/14/19 14:30 RPR Titer Nonreactive (NONREACTIVE) 12/14/19 14:30 HIV 1&2 Ag/Ab, 4th Gen Non reactive (Non Reactive) 12/14/19 14:30 HIV 1&2 Antibody Screen Cancelled 12/14/19 14:30 HIV P24 Antigen Cancelled 12/14/19 14:30 - Treatment Hospital Course: Detox Protocol Followed, Detoxed Safely, Responded well, Discharged Condition Good, Rehab Referral Accepted Patient has Accepted [facility] Referral [facility] - Medication Discharge Medications: Ambulatory Orders NK [No Known Home Medication] 12/14/19 - Diagnosis (1) Alcohol dependence with uncomplicated withdrawal Current Visit: No Status: Acute (2) Major depressive disorder, recurrent, moderate Current Visit: No Status: Acute (3) Sedative, hypnotic or anxiolytic abuse Current Visit: No Status: Acute (4) Cannabis dependence Current Visit: No Status: Chronic - AMA Did Patient Leave Against Medical Advice: No
--- NOTE | 2019-12-19 11:51 | HP ---
[facility] Rehab Assess/Revision - Admission History Admitted to Rehab from: [facility] Date of Admission to Rehab: 12/19/2019 - Vital signs Vital Signs: Vital Signs Period Temp Pulse Resp BP Sys/Estrada Pulse Ox Last 24 Hr 97.0 F-98.2 F 71-84 18-20 129-162/81-91 - Findings Detox History & Physical reviewed: Yes Concur with findings: Yes Comments/Additional Findings: for rehab as protocol Inpatient Rehab Admission - Rehab Decision to Admit Inpatient rehab admission?: Yes - Initial Determination Are CD services needed?: Yes Free of communicable disease: Yes Not in need of hospitalization: Yes - Rehab Admission Criteria Previous failed treatment: Yes Poor recovery environment: Yes Comorbidities: Yes Lacks judgement: No Patient is meeting Inpatient Rehab admission criteria:: Yes
[2019-12-19 13:23] VITALS: BP 152/89; PULSE 74; TEMP 97.9
== END 2019-12-19 15:05 | disposition other institution (70) | DRG 774 ==
LOC: YASAS 12:03 → Y6N 14:35
PROVIDERS: ADMIT Allergy & Immunology; ATTEND Allergy & Immunology
PROC: HZ2ZZZZ Detoxification Services for Substance Abuse Treatment (ICD-10-PCS; principal; 2019-12-14)
DX: F10.230 Alcohol dependence with withdrawal, uncomplicated (principal); F13.230 Sedative, hypnotic or anxiolytic dependence with withdrawal, uncomplicated; F14.20 Cocaine dependence, uncomplicated; F12.20 Cannabis dependence, uncomplicated; F17.210 Nicotine dependence, cigarettes, uncomplicated; F33.1 Major depressive disorder, recurrent, moderate; Z56.0 Unemployment, unspecified
CPT/HCPCS: 36415; 80053; 82962; 85027; 86593; 87389; J0735

== ENCOUNTER 2019-12-19 15:22 | Inpatient (IN) | payer OTHER ==
--- NOTE | 2019-12-19 15:57 | HP ---
[facility] Rehab Assess/Revision - Admission History Admitted to Rehab from: Date of Admission to Rehab: 12/19/19 - Vital signs Vital Signs: Vital Signs Period Temp Pulse Resp BP Sys/Estrada Pulse Ox Last 24 Hr 98.2 F 73 20 135/74 - Findings Detox History & Physical reviewed: Yes Concur with findings: Yes Comments/Additional Findings: Pt is a 49 y/o male with a hx of RADHA-alcohol, cocaine,xanax admitted to rehab today after completing detox on . PMHx/ PSH:Appendectomy.Psych Hx: Insomnia,MDD. Alert o x 3. nad. oob ambulating with steady gait. extremities/skin:no edema;skin intact. Plan:f/u with psych consult. Inpatient Rehab Admission - Rehab Decision to Admit Inpatient rehab admission?: Yes - Initial Determination Are CD services needed?: Yes Free of communicable disease: Yes Not in need of hospitalization: Yes - Rehab Admission Criteria Previous failed treatment: Yes Poor recovery environment: Yes Comorbidities: Yes Lacks judgement: Yes Patient is meeting Inpatient Rehab admission criteria:: Yes
[2019-12-19] MEDS ORDERED: guaiFENesin 200 MG/10 ML 10 ML UNIT-DOSE CUPS PO PRN (15:58)
[2019-12-19] MEDS ORDERED: NICOTINE POLACRILEX 2 MG GUM BUC PRN (15:58)
[2019-12-19] MEDS ORDERED: ACETAMINOPHEN 325 MG TABLET (FP) PO PRN (15:58)
[2019-12-19] MEDS ORDERED: IBUPROFEN 400 MG TABLET (FP) PO PRN (15:58)
[2019-12-19] MEDS ORDERED: MAG HYDROX/AL HYDROX/SIMETH 30 ML UNIT-DOSE CUP PO PRN (15:58)
[2019-12-19] MEDS ORDERED: MAGNESIUM HYDROX 2400MG/30ML ORAL SUSPENSION 30 ML CUP PO PRN (15:58)
[2019-12-19] MEDS ORDERED: MAGNESIUM CITRATE 300 ML BOTTLE PO PRN (15:58)
[2019-12-19] MEDS ORDERED: P-EPHED 60MG/TRIPROLIDI 2.5MG TABLET PO PRN (15:58)
[2019-12-19] MEDS ORDERED: MENTHOL/PHENOL 1 EACH UD MM PRN (15:58)
[2019-12-19] MEDS ORDERED: LOPERAMIDE HCL 2 MG CAPSULE PO PRN (15:58)
[2019-12-19] MEDS ORDERED: hydrOXYzine PAMOATE 50 MG CAPSULE (FP) PO PRN (15:58)
[2019-12-19] MEDS: THIAMINE HCL 100 MG TABLET (FP) PO SCH (21:12)
[2019-12-19] MEDS: hydrOXYzine PAMOATE 50 MG CAPSULE (FP) PO PRN (21:12)
[2019-12-19] MEDS: MELATONIN 5 MG TABLETS PO PRN (21:12)
--- NOTE | 2019-12-20 09:19 | CONSULT ---
[facility] Psychiatric Consult - Data Date of interview: 12/20/19 Admission source: 6N Identifying data: Mr Carney is a 49 years old Black male, father of 5 children, unemployed receiving SSI, living in supportive housing admitted from detox on 12/19/19 for inpatient rehabilitation for alcohol, cocaine and benzodiazepine Substance Abuse History: Reports history of alcohol, cocaine, xanax and klonopin use. Refer to addiction counselor's summary for further information Medical History: Significant for dyslipidemia, obesity and history of appendectomy in 1983. 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 Historical narrative remains consistent. He reports that his first psychiatric contact occured in 2005 when he was admitted to [facility] for severe depression following of a brother from a heart attack. He was diagnosed with MDD and prescribed Paxil 20 mg po daily, Wellbutrin 150 mg po daily and Trazadone 100 mg po HS. Reports multiple subsequent psychiatric admissions to [facility] x2, [facility] and [facility] x3. Most recent admission was from 11/04/19 to 11/14/19 to [facility] for depression. He was discharged on Zoloft 50 mg/day, Risperdal 1 mg/bid and referred for follow up. He said that he relapsed soon after discharge and did not follow discharge instruction. [facility] [phone] contacted and it is confirmed that scripts for 30 days supply of these medications were filled on 11/13/19. Denies previous suicidal attempt. At present, denies depressive symptoms, S/H ideations. However, reports sleeping poorly. Requests to resume taking medications Physical/Sexual Abuse/Trauma History: Denies history of emotional, physical or sexual abuse as well as DV relationship. No service Additional Comment: Reports history of 2 previous arrests including one felony conviction. No parole/probation currently Mental Status Exam - Mental Status Exam Alert and Oriented to: Time, Place, Person Cognitive Function: Fair Patient Appearance: Well Groomed Mood: Hopeful, Euthymic Speech Pattern: Clear Thought Disorder: Not Present Hallucinations: Denies Suicidal Ideation: Denies Homicidal Ideation: Denies Sleep: Poorly Appetite: Good Muscle strength/Tone: Normal Gait/Station: Normal Psychiatric Findings - Problem List ([place] 1, 2,3) (1) MDD (major depressive disorder), recurrent episode, severe Current Visit: No Status: Chronic (2) Substance-induced sleep disorder Current Visit: No Status: Acute (3) Alcohol dependence Current Visit: No Status: Acute (4) Cocaine dependence Current Visit: No Status: Chronic Qualifiers: Substance use status: uncomplicated Qualified Code(s): F14.20 - Cocaine dependence, uncomplicated (5) Sedative hypnotic or anxiolytic dependence Current Visit: No Status: Chronic (6) Nicotine dependence Current Visit: No Status: Chronic Qualifiers: Nicotine product type: cigarettes Substance use status: uncomplicated Qualified Code(s): F17.210 - Nicotine dependence, cigarettes, uncomplicated (7) HLD (hyperlipidemia) Current Visit: No Status: Chronic (8) Obesity (BMI 30-39.9) Current Visit: No Status: Chronic - Initial Treatment Plan Initial Treatment Plan: 1) Resume Zoloft 50 mg po daily and Risperdal 1 mg po BID. 2) Start Belsomra 15 mg po HS prn for insomnia. 3) Continue inpatient rehabilitation
[2019-12-20] MEDS: hydrOXYzine PAMOATE 50 MG CAPSULE (FP) PO PRN ×2 (10:11→21:19)
[2019-12-20] MEDS: PRENATAL VITAMINS W/ FOLIC ACID TABLET (FP) PO SCH (10:11)
[2019-12-20] MEDS: risperiDONE 1 MG TABLET PO SCH ×2 (12:00→21:18)
[2019-12-20] MEDS ORDERED: PNEUMOC 13-VAL CONJ-DIP CRM/PF 0.5 ML DISP.SYRIN IM ONE (12:00)
[2019-12-20] MEDS ORDERED: PNEUMOCOCCAL 23 VACCINE 0.5 ML VIAL IM ONE (12:00)
[2019-12-20] MEDS: SERTRALINE HCL 50 MG TABLET (FP) PO SCH (12:00)
[2019-12-20] MEDS: THIAMINE HCL 100 MG TABLET (FP) PO SCH (21:18)
[2019-12-20] MEDS: SUVOREXANT 15 MG TABLET PO PRN (21:20)
[2019-12-21] MEDS: PRENATAL VITAMINS W/ FOLIC ACID TABLET (FP) PO SCH (10:02)
[2019-12-21] MEDS: SERTRALINE HCL 50 MG TABLET (FP) PO SCH (10:02)
[2019-12-21] MEDS: risperiDONE 1 MG TABLET PO SCH ×2 (10:02→21:09)
[2019-12-21] MEDS: hydrOXYzine PAMOATE 50 MG CAPSULE (FP) PO PRN ×2 (10:03→21:09)
[2019-12-21] MEDS: THIAMINE HCL 100 MG TABLET (FP) PO SCH (21:09)
[2019-12-21] MEDS: SUVOREXANT 15 MG TABLET PO PRN (21:10)
[2019-12-22] MEDS: PRENATAL VITAMINS W/ FOLIC ACID TABLET (FP) PO SCH (10:05)
[2019-12-22] MEDS: risperiDONE 1 MG TABLET PO SCH ×2 (10:05→21:06)
[2019-12-22] MEDS: hydrOXYzine PAMOATE 50 MG CAPSULE (FP) PO PRN ×2 (10:05→21:06)
[2019-12-22] MEDS: SERTRALINE HCL 50 MG TABLET (FP) PO SCH (10:05)
[2019-12-22] MEDS: THIAMINE HCL 100 MG TABLET (FP) PO SCH (21:06)
[2019-12-22] MEDS: SUVOREXANT 15 MG TABLET PO PRN (21:06)
[2019-12-23] MEDS: PRENATAL VITAMINS W/ FOLIC ACID TABLET (FP) PO SCH (09:50)
[2019-12-23] MEDS: risperiDONE 1 MG TABLET PO SCH ×2 (09:50→21:06)
[2019-12-23] MEDS: SERTRALINE HCL 50 MG TABLET (FP) PO SCH (09:50)
[2019-12-23] MEDS: hydrOXYzine PAMOATE 50 MG CAPSULE (FP) PO PRN ×2 (09:50→21:06)
[2019-12-23] MEDS: THIAMINE HCL 100 MG TABLET (FP) PO SCH (21:06)
[2019-12-23] MEDS: SUVOREXANT 15 MG TABLET PO PRN (21:06)
[2019-12-24] MEDS: hydrOXYzine PAMOATE 50 MG CAPSULE (FP) PO PRN ×2 (09:32→21:25)
[2019-12-24] MEDS: SERTRALINE HCL 50 MG TABLET (FP) PO SCH (09:32)
[2019-12-24] MEDS: PRENATAL VITAMINS W/ FOLIC ACID TABLET (FP) PO SCH (09:32)
[2019-12-24] MEDS: risperiDONE 1 MG TABLET PO SCH ×2 (09:32→21:24)
--- NOTE | 2019-12-24 12:18 | PN ---
S Progress Note Note: Patient reports sleeping poorly despite taking Belsomra 15 mg/hs prn. Requests increase in Belsomra dosage to 20 mg/hs prn. Belsomra 20 mg/hs prn for insomnia is ordered
[2019-12-24] MEDS: THIAMINE HCL 100 MG TABLET (FP) PO SCH (21:24)
[2019-12-24] MEDS: SUVOREXANT 10 MG TABLET PO PRN (21:25)
[2019-12-25] MEDS: hydrOXYzine PAMOATE 50 MG CAPSULE (FP) PO PRN ×3 (01:39→21:09)
[2019-12-25] MEDS: PRENATAL VITAMINS W/ FOLIC ACID TABLET (FP) PO SCH (10:06)
[2019-12-25] MEDS: SERTRALINE HCL 50 MG TABLET (FP) PO SCH (10:06)
[2019-12-25] MEDS: risperiDONE 1 MG TABLET PO SCH ×2 (10:06→21:08)
[2019-12-25] MEDS: THIAMINE HCL 100 MG TABLET (FP) PO SCH (21:08)
[2019-12-25] MEDS: SUVOREXANT 10 MG TABLET PO PRN (21:10)
[2019-12-26] MEDS: hydrOXYzine PAMOATE 50 MG CAPSULE (FP) PO PRN ×3 (02:06→21:10)
[2019-12-26] MEDS: SERTRALINE HCL 50 MG TABLET (FP) PO SCH (10:23)
[2019-12-26] MEDS: PRENATAL VITAMINS W/ FOLIC ACID TABLET (FP) PO SCH (10:23)
[2019-12-26] MEDS: risperiDONE 1 MG TABLET PO SCH ×2 (10:23→21:10)
[2019-12-26] MEDS: THIAMINE HCL 100 MG TABLET (FP) PO SCH (21:10)
[2019-12-26] MEDS: SUVOREXANT 10 MG TABLET PO PRN (21:10)
[2019-12-26] MEDS: MELATONIN 5 MG TABLETS PO PRN (21:10)
[2019-12-27] MEDS: PRENATAL VITAMINS W/ FOLIC ACID TABLET (FP) PO SCH (10:05)
[2019-12-27] MEDS: SERTRALINE HCL 50 MG TABLET (FP) PO SCH (10:05)
[2019-12-27] MEDS: risperiDONE 1 MG TABLET PO SCH ×2 (10:05→21:18)
[2019-12-27] MEDS: hydrOXYzine PAMOATE 50 MG CAPSULE (FP) PO PRN ×2 (10:06→21:18)
[2019-12-27] MEDS: SUVOREXANT 10 MG TABLET PO PRN (21:17)
[2019-12-27] MEDS: THIAMINE HCL 100 MG TABLET (FP) PO SCH (21:18)
[2019-12-27] MEDS: MELATONIN 5 MG TABLETS PO PRN (21:19)
[2019-12-28] MEDS: hydrOXYzine PAMOATE 50 MG CAPSULE (FP) PO PRN ×2 (02:45→21:11)
[2019-12-28] MEDS: risperiDONE 1 MG TABLET PO SCH ×2 (10:10→21:07)
[2019-12-28] MEDS: PRENATAL VITAMINS W/ FOLIC ACID TABLET (FP) PO SCH (10:10)
[2019-12-28] MEDS: SERTRALINE HCL 50 MG TABLET (FP) PO SCH (10:10)
[2019-12-28] MEDS: THIAMINE HCL 100 MG TABLET (FP) PO SCH (21:07)
[2019-12-28] MEDS: MELATONIN 5 MG TABLETS PO PRN (21:07)
[2019-12-28] MEDS ORDERED: SUVOREXANT 20 MG TABLET PO PRN (22:00)
[2019-12-29] MEDS: hydrOXYzine PAMOATE 50 MG CAPSULE (FP) PO PRN (02:36)
[2019-12-29 07:16] VITALS: BP 132/71; PULSE 71; TEMP 97.6
[2019-12-29] MEDS: SERTRALINE HCL 50 MG TABLET (FP) PO SCH (09:01)
[2019-12-29] MEDS: risperiDONE 1 MG TABLET PO SCH (09:01)
[2019-12-29] MEDS: PRENATAL VITAMINS W/ FOLIC ACID TABLET (FP) PO SCH (09:01)
--- NOTE | 2019-12-29 09:18 | DS ---
[facility] Rehab Discharge Summary - [facility] Rehab Discharge Summary Admission Date: 12/19/19 Discharge Date: 12/29/19 - History Present History: Alcohol dependence, Cannabis dependence, Sedative dependence Additional Comments: Pt is a 49 y/o male with a hx of RADHA admitted to rehab and scheduled to discharge today. Pt met with his counselor and was referred to [facility] on [address] [place] [address] for CD aftercare. Pt reports he has no primary care and has been referred to [facility] on [place], [place] for medical management as needed. Pertinent Past History: HLD(no med) Morbid Obesity PTSD MDD - Discharge Physical Exam Vital Signs: Vital Signs Temperature 97.6 F 12/29/19 07:16 Pulse Rate 71 12/29/19 07:16 Respiratory Rate 12/29/19 07:16 Blood Pressure 132/71 12/29/19 07:16 O2 Sat by Pulse Oximetry (%) Pertinent Admission Physical Exam Findings: Status Stable and unchanged. - Treatment Discharge Condition: Outpatient referral accepted Hospital Course: Rehabilitated safely and responded well. attended groups and individual sessions while in treatment. CD aftercare referral accepted. - Medication Discharge Medications: Ambulatory Orders Risperdal - 12/19/19 Seroquel 300 mg PO HS 12/19/19 Zoloft 50 mg PO DAILY 12/19/19 - Medication-Assisted Treatment (MAT) Medication-Assisted Treatment (MAT): No - Discharge Instructions Diet, activity, other medical instructions: Diet:Regular Activity: oob ad sheldon Other medical instructions:follow up with CD aftercare recommendation as scheduled with [facility]. Follow up with primary care at location below within 1-2 weeks after discharge and as needed. Primary Care Location: [facility] [address] [place] [address], [place] [address] - Diagnosis (1) Alcohol dependence Current Visit: Yes Status: Chronic Qualifiers: Substance use status: uncomplicated Qualified Code(s): F10.20 - Alcohol dependence, uncomplicated (2) Cannabis dependence Current Visit: Yes Status: Chronic (3) Cocaine dependence Current Visit: Yes Status: Chronic Qualifiers: Substance use status: uncomplicated Qualified Code(s): F14.20 - Cocaine dependence, uncomplicated (4) HLD (hyperlipidemia) Current Visit: Yes Status: Chronic Qualifiers: Hyperlipidemia type: unspecified Qualified Code(s): E78.5 - Hyperlipidemia , unspecified (5) Nicotine dependence Current Visit: Yes Status: Chronic Qualifiers: Nicotine product type: cigarettes Substance use status: uncomplicated Qualified Code(s): F17.210 - Nicotine dependence, cigarettes, uncomplicated (6) Obesity Current Visit: Yes Status: Chronic Qualifiers: Obesity classification: adult class 3 (BMI >= 40) Body mass index: BMI 40.0 -44.9 - Follow-up Referral Minutes to complete discharge: 20 - AMA Did Patient Leave Against Medical Advice: No
--- NOTE | 2019-12-29 11:07 | PN ---
S Progress Note Note: Psychiatric nurse practitioner note: Patient discharged this morning. Patient was ordered Zoloft 50mg daily + Risperdal 1mg BID during his stay on [facility] but stated to nursing staff that he did not need a prescription.
== END 2019-12-29 10:00 | disposition home or self-care (01) | DRG 772 ==
LOC: YASAS 15:22 → Y5N 15:23 → Y3W 18:20 → Y5N 18:23
PROVIDERS: ADMIT Allergy & Immunology; ATTEND Allergy & Immunology
PROC: HZ42ZZZ Group Counseling for Substance Abuse Treatment, Cognitive-Behavioral (ICD-10-PCS; principal; 2019-12-19)
DX: F10.20 Alcohol dependence, uncomplicated (principal); F13.20 Sedative, hypnotic or anxiolytic dependence, uncomplicated; F12.20 Cannabis dependence, uncomplicated; F17.210 Nicotine dependence, cigarettes, uncomplicated; F33.2 Major depressive disorder, recurrent severe without psychotic features; F19.282 Other psychoactive substance dependence with psychoactive substance-induced sleep disorder; F43.10 Post-traumatic stress disorder, unspecified; E66.01 Morbid (severe) obesity due to excess calories; Z68.41 Body mass index [BMI] 40.0-44.9, adult
CPT/HCPCS: 90732; G0009; J2794

== ENCOUNTER 2020-07-26 16:44 | Inpatient (IN) | payer OTHER ==
--- NOTE | 2020-07-26 18:34 | BHS.RME ---
Substance Use & Tx History - Substance Use History Alcohol Substance amount: 4 pints Vodka Frequency of use: Daily Substance route: Oral Date of Last Use: 07/26/20 - Last Treatment Date of last treatment: 12/14/2019-12/29/2019 Treatment type: Substance Use Disorder (RADHA) Where was last treatment: Detox Physical/Psych/Mental Status - Behavior Eye Contact: Normal - Cooperativeness Cooperativeness: Cooperative - Thinking Thought Processes: Logical Thought content: Future oriented - Physical Health Problems Is patient presently having any pain?: No Does patient presently have any injuries (include location): No Does patient currently have a fever: No Is patient : No CIWA Nausea/Vomitin Muscle Tremors: 3 Anxiety: 2 Agitation: 4-Moderately Restless Paroxysmal Sweats: 2 Orientation: 0-Oriented Tacttile Disturbances: 0-None Auditory Disturbances: 0-None Visual Disturbances: 0-None Headache: 3-Moderate CIWA-Ar Total Score: 16 Treatment Recommendation - Level of Care Level of Care: Opioid Treatment Program (OTP) (Alcohol detoxification)
--- NOTE | 2020-07-26 19:48 | HP ---
CIWA Score Nausea/Vomitin Muscle Tremors: 3 Anxiety: 2 Agitation: 4-Moderately Restless Paroxysmal Sweats: 2 Orientation: 0-Oriented Tacttile Disturbances: 0-None Auditory Disturbances: 0-None Visual Disturbances: 0-None Headache: 3-Moderate CIWA-Ar Total Score: 16 - Admission Criteria OASAS Guidelines: Admission for Medically Managed Detox: Requires at least one of the followin. CIWA greater than 12 2. Seizures within the past 24 hours 3. Delirium tremens within the past 24 hours 4. Hallucinations within the past 24 hours 5. Acute intervention needed for co occurring medical disorder 6. Acute intervention needed for co occurring psychiatric disorder 7. Severe withdrawal that cannot be handled at a lower level of care (continued vomiting, continued diarrhea, abnormal vital signs) requiring intravenous medication and/or fluids 8. Admitting History and Physical - Past Surgical History Past Surgical History: Yes: Appendectomy (1983) - Smoking History Smoking history: Current every day smoker Have you smoked in the past 12 months: Yes Aproximately how many cigarettes per day: 10 - Alcohol/Substance Use Hx Alcohol Use: Yes History of Substance Use: reports: Cocaine, Marijuana, Tranquilizers - Social History ADL: Independent History of Recent Travel: No Admission ROS [facility] Chief Complaint: Seeking admission to detox from alcohol Allergies/Adverse Reactions: Allergies Allergy/AdvReac Type Severity Reaction Status Date / Time No Known Allergies Allergy Verified 12/19/19 18:15 History of Present Illness: 50 years old male with a long history of alcohol dependence is seeking admission to detox. His last admission was for the period 12/14/2019- 12/29/2019 and he reports that he relapsed on February 12, 2020. He reports that he drinks 4 pints of vodka daily. He has medical history of hyperlipidemia and obesity, psych. history and suicidal ideation at this time. He is unemployed, lives alone in an apartment and denies any legal issues. He reports + eye crate opener and denies blackouts and alcohol related seizures. Exam Limitations: No Limitations - Ebola screening Have you traveled outside of the country in the last 21 days: No Have you had contact with anyone from an Ebola affected area: No Have you been sick,other than usual withdrawal symptoms: No Do you have a fever: No - Review of Systems Constitutional: Chills, Malaise, Night Sweats, Changes in sleep EENT: reports: No Symptoms Reported Respiratory: reports: No Symptoms reported Cardiac: reports: No Symptoms Reported GI: reports: Nausea, Poor Appetite, Poor Fluid Intake, Abdominal cramping : reports: No Symptoms Reported Musculoskeletal: reports: Back Pain Integumentary: reports: Dryness, Flushing Neuro: reports: Headache, Tremors Endocrine: reports: No Symptoms Reported Hematology: reports: No Symptoms Reported Psychiatric: reports: Anxious, Depressed Other Systems: Reviewed and Negative Patient History - Patient Medical History Hx Anemia: No Hx Asthma: No Hx Chronic Obstructive Pulmonary Disease (COPD): No Hx Cancer: No Hx Cardiac Disorders: No Hx Congestive Heart Failure: No Hx Hypertension: No Hx Hypercholesterolemia: No Hx Pacemaker: No HX Cerebrovascular Accident: No Hx Seizures: No Hx Dementia: No Hx Diabetes: No Hx Gastrointestinal Disorders: No Hx Liver Disease: No Hx Genitourinary Disorders: No Hx Sexually Transmitted Disorders: No Hx Renal Disease (ESRD): No Hx Thyroid Disease: No Hx Human Immunodeficiency Virus (HIV): No (Negative 04/2020) Hx Hepatitis C: No Hx Depression: No Hx Suicide Attempt: No (Denies suicidal ideation at thi time) Hx Bipolar Disorder: No Hx Schizophrenia: No - Patient Surgical History Past Surgical History: Yes Hx Neurologic Surgery: No Hx Cataract Extraction: No Hx Cardiac Surgery: No Hx Lung Surgery: No Hx Breast Surgery: No Hx Breast Biopsy: No Hx Appendectomy: Yes (1983) Hx Cholecystectomy: No Hx Genitourinary Surgery: No Hx Section: No Hx Orthopedic Surgery: No Anesthesia Reaction: No - PPD History Previous Implant?: Yes Documented Results: Negative w/o proof Implanted On Prior [facility] Admission?: Yes Date: 02/18/19 Results: 0mm PPD to be Administered?: Yes - Reproductive History Patient is a Female of Child Bearing Age (11 -55 yrs old): No (Male) - Smoking Cessation Smoking history: Current every day smoker Have you smoked in the past 12 months: Yes Aproximately how many cigarettes per day: 10 Hx Chewing Tobacco Use: No Initiated information on smoking cessation: Yes 'Breaking Loose' booklet given: 07/26/20 - Substance & Tx. History Hx Alcohol Use: Yes Hx Substance Use: Yes Substance Use Type: Alcohol, Cocaine, Marijuana Hx Substance Use Treatment: Yes ([facility]) - Substances abused Alcohol Substance route: Oral Frequency: Daily Amount used: 4 pints Vodka Age of first use: 19 Date of last use: 07/26/20 Admission Physical Exam [facility] - Physical General Appearance: Yes: Moderate Distress, Tremorous, Anxious HEENTM: Yes: Within Normal Limits Respiratory: Yes: Lungs Clear, Normal Breath Sounds, No Respiratory Distress Neck: Yes: Within Normal Limits Breast: Yes: Breast Exam Deferred Cardiology: Yes: Tachycardia Abdominal: Yes: Normal Bowel Sounds Genitourinary: Yes: Within Normal Limits Back: Yes: Normal Inspection Musculoskeletal: Yes: Back pain Extremities: Yes: Tremors Neurological: Yes: Normal Mood/Affect Integumentary: Yes: Dry Lymphatic: Yes: Within Normal Limits - Diagnostic (1) Alcohol dependence with uncomplicated withdrawal Current Visit: Yes Status: Acute (2) Cannabis dependence Current Visit: Yes Status: Chronic (3) Cocaine dependence Current Visit: Yes Status: Chronic Qualifiers: Substance use status: uncomplicated Qualified Code(s): F14.20 - Cocaine dependence, uncomplicated (4) HLD (hyperlipidemia) Current Visit: Yes Status: Chronic Qualifiers: Hyperlipidemia type: unspecified Qualified Code(s): E78.5 - Hyperlipidemia, unspecified (5) Obesity Current Visit: Yes Status: Chronic Qualifiers: Obesity classification: adult class 3 (BMI >= 40) Body mass index: BMI 40.0-44.9 (6) Sedative hypnotic or anxiolytic dependence Current Visit: Yes Status: Chronic Cleared for Admission [facility] - Detox or Rehab [facility] Level of Care: Medically Managed Detox Regimen/Protocol: Librium Claeared for Rehab Admission: No Breathalyzer - Breathalyzer Breathalyzer: 0 Urine Drug Screen - Test Device Lot number: [id number] Expiration date: 02/06/22 - Control Is test valid?: Yes - Results Drug screen NEGATIVE: No Urine drug screen results: THC-Marijuana, [place]ERET[place]-Cocaine, BZO-Benzodiazepines, MDMA-Ecstasy Inpatient Rehab Admission - Rehab Decision to Admit Inpatient rehab admission?: No
--- OUTSIDE RECORDS SUMMARY | 2020-07-26 20:18 | XMS ---
:1970 Author Organization [facility] Support Name Relationship Address Phone UE Unavailable Unavailable Unavailable SRI KENNEDY DAUGHTER [address] [facility] [address] [phone] [place] [address] Re-disclosure Warning The records that you are about to access may contain information from federally- assisted alcohol or drug abuse programs. If such information is present, then the following federally mandated warning applies: This information has been disclosed to you from records protected by federal confidentiality rules (42 CFR part 2). The federal rules prohibit you from making any further disclosure of this information unless further disclosure is expressly permitted by the written consent of the person to whom it pertains or as otherwise permitted by 42 CFR part 2. A general authorization for the release of medical or other information is NOT sufficient for this purpose. The Federal rules restrict any use of the information to criminally investigate or prosecute any alcohol or drug abuse patient.The records that you are about to access may contain highly sensitive health information, the redisclosure of which is protected by Article 27-F of the [facility] Public Health law. If you continue you may haveaccess to information: Regarding HIV / AIDS; Provided by facilities licensed or operated by the [facility] Office of Mental Health; or Provided by the [facility] Office for People With Developmental Disabilities. If such information is present, then the following [facility] mandated warning applies: This information has been disclosed to you from confidential records which are protected by state law. State law prohibits you from making any further disclosure of this information without the specific written consent of the person to whom it pertains, or as otherwise permitted by law. Any unauthorized further disclosure in violation of state law may result in a fine or senior living sentence or both. A general authorization for the release of medical or other information is NOT sufficient authorization for further disclosure. Insurance Providers Payer name Policy type Policy ID Covered Covered democrat's Policy P eliazar / Coverage democrat ID relationship to Gr Inf ormation type gr [employer] [id number] SP [id number] [employer] [id number] SP [id number] [employer] [id number] SP [id number] [employer] Results ID Date Data Source [id number] 04/04/2020 09:28:00 AM EDT [place] Name Value Range Interpretation Description Data Sup porting Code Source(s) Document(s ) SARS [place] Coronavirus 2 RNA Presence Respiratory Specimen MARSHA Probe Detection This lab was ordered by [facility] and rep orted by [facility]. Procedure
[2020-07-26] MEDS ORDERED: MAG HYDROX/AL HYDROX/SIMETH 30 ML UNIT-DOSE CUP PO PRN (20:32)
[2020-07-26] MEDS ORDERED: NICOTINE POLACRILEX 2 MG GUM BUC PRN (20:32)
[2020-07-26] MEDS ORDERED: MAGNESIUM HYDROX 2400MG/30ML ORAL SUSPENSION 30 ML CUP PO PRN (20:32)
[2020-07-26] MEDS ORDERED: BISMUTH SUBSALICYLATE 524 MG/30 ML UD PO PRN (20:32)
[2020-07-26] MEDS ORDERED: MENTHOL/PHENOL 1 EACH UD MM PRN (20:32)
[2020-07-26] MEDS ORDERED: chlordiazePOXIDE HCL 25 MG CAPSULE PO PRN (20:32)
[2020-07-26] MEDS ORDERED: MAGNESIUM CITRATE 300 ML BOTTLE PO PRN (20:32)
[2020-07-26] MEDS ORDERED: ONDANSETRON *ODT* 4 MG TABLET SL PRN (20:32)
[2020-07-26] MEDS ORDERED: METHOCARBAMOL 500 MG TABLET PO PRN (20:32)
[2020-07-26] MEDS ORDERED: ACETAMINOPHEN 325 MG TABLET (FP) PO PRN ×2 (20:32)
[2020-07-26] MEDS: IBUPROFEN 400 MG TABLET (FP) PO PRN (21:21)
[2020-07-26] MEDS: THIAMINE HCL 100 MG TABLET (FP) PO SCH (22:12)
[2020-07-26] MEDS: chlordiazePOXIDE HCL 25 MG CAPSULE PO SCH (22:13)
[2020-07-26] MEDS: MELATONIN 5 MG TABLETS PO SCH (22:15)
[2020-07-27] MEDS: chlordiazePOXIDE HCL 25 MG CAPSULE PO SCH ×4 (06:11→22:22)
[2020-07-27] MEDS: IBUPROFEN 400 MG TABLET (FP) PO PRN ×3 (06:13→22:27)
[2020-07-27] MEDS: NICOTINE 14 MG/24 HOURS TOPICAL PATCH TD SCH (10:34)
[2020-07-27] MEDS: PRENATAL VITAMINS W/ FOLIC ACID TABLET (FP) PO SCH (10:35)
[2020-07-27 11:45] LABS: HEMATOCRIT 43.4 % (35.4-49); HEMOGLOBIN 14.3 GM/dL (11.7-16.9); MCH 30.8 pg (25.7-33.7); MCHC 32.8 g/dl (32.0-35.9); MEAN CELL VOLUME 93.8 fl (80-96); MEAN PLT VOLUME 9.2 fl (7.5-11.1); PLATELET COUNT 200 K/MM3 (134-434); RBC 4.63 M/mm3 (4.00-5.60); RDW 14.4 % (11.9-15.9); WHITE BLOOD COUNT 7.1 K/mm3 (4.0-10.0)
[2020-07-27 12:03] LABS: ALBUMIN 3.2 g/dl (3.4-5.0); BILIRUBIN,TOTAL 0.3 mg/dL (0.2-1); BLOOD UREA NITROGEN 17.4 mg/dL (7-18); CREATININE 0.9 mg/dL (0.55-1.3); POTASSIUM 3.9 mmol/L (3.5-5.1); TOT PROT 6.5 g/dl (6.4-8.2)
--- NOTE | 2020-07-27 15:57 | PN ---
[facility] CIWA - CIWA Score Nausea/Vomitin-No Nausea/No Vomiting Muscle Tremors: 3 Anxiety: 3 Agitation: 1-Slight > Activity Paroxysmal Sweats: No Perspiration Orientation: 0-Oriented Tacttile Disturbances: 0-None Auditory Disturbances: 2-Mild Harshness/Frighten Visual Disturbances: 2-Mild Sensitivity Headache: 0-None Present CIWA-Ar Total Score: 11 BHS Progress Note (SOAP) Subjective: Tremors, Anxious, Sweating, Interrupted Sleep. Objective: Patient A & O X 3, Observed Ambulating on Detox Unit Unassisted. In No Acute Distress. 07/27/20 15:58 Vital Signs Temperature 98.1 F 07/27/20 12:35 Pulse Rate 79 07/27/20 12:35 Respiratory Rate 18 07/27/20 12:35 Blood Pressure 154/92 07/27/20 12:35 O2 Sat by Pulse Oximetry (%) 95 07/27/20 12:35 No history of Hypertension reported by Patient on Detox Admission History and Physical Assessment. Laboratory Tests 07/27/20 07/27/20 07/27/20 07:50 07:50 07:50 WBC 7.1 RBC 4.63 Hgb 14.3 Hct 43.4 MCV 93.8 MCH 30.8 MCHC 32.8 RDW 14.4 Plt Count 200 D MPV 9.2 Sodium 142 Potassium 3.9 Chloride 108 H Carbon Dioxide 29 Anion Gap 5 L BUN 17.4 Creatinine 0.9 Est GFR (CKD-EPI)AfAm 116.65 Est GFR (CKD-EPI)NonAf 100.64 Random Glucose 87 Calcium 9.0 Total Bilirubin 0.3 AST 36 ALT 44 Alkaline Phosphatase 91 Total Protein 6.5 Albumin 3.2 L Syphilis Serology Non-reactive Lab Results noted. 07/27/20 16:33 Assessment: 07/27/20 16:31 WITHDRAWAL SYMPTOMS. ELEVATED BLOOD PRESSURE READINGS WITHOUT DIAGNOSIS OF HYPERTENSION. 07/27/20 16:32 Plan: Continue Detox. Amlodipine, 5 mg daily for elevated Blood Pressure noted on multiple readings.
[2020-07-27] MEDS: amLODIPine BESYLATE 5 MG TABLET (FP) PO SCH ×2 (17:56→18:02)
[2020-07-27] MEDS: THIAMINE HCL 100 MG TABLET (FP) PO SCH (22:23)
[2020-07-27] MEDS: MELATONIN 5 MG TABLETS PO SCH (22:23)
[2020-07-28] MEDS: chlordiazePOXIDE HCL 25 MG CAPSULE PO SCH ×4 (05:43→22:27)
[2020-07-28] MEDS: PRENATAL VITAMINS W/ FOLIC ACID TABLET (FP) PO SCH (10:30)
[2020-07-28] MEDS: IBUPROFEN 400 MG TABLET (FP) PO PRN (10:30)
[2020-07-28] MEDS: amLODIPine BESYLATE 5 MG TABLET (FP) PO SCH (10:30)
[2020-07-28] MEDS: NICOTINE 14 MG/24 HOURS TOPICAL PATCH TD SCH (10:30)
--- NOTE | 2020-07-28 10:56 | CONSULT ---
[facility] Psychiatric Consult - Data Date of interview: 07/28/20 Admission source: [facility] Identifying data: Patient is a 50 year old black male, father of five, unemployed, domiciled, and is supported with SSI benefits. This is one of multiple admissions for patient. Patient admitted to for alcohol dependence. Substance Abuse History: Smoking Cessation. Smoking history: Current every day smoker. Have you smoked in the past 12 months: Yes. Aproximately how many cigarettes per day: 10. Hx Chewing Tobacco Use: No. Initiated information on smoking cessation: Yes. 'Breaking Loose' booklet given: 07/26/20. - Substance & Tx. History. Hx Alcohol Use: Yes. Hx Substance Use: Yes. Substance Use Type: Alcohol, Cocaine, Marijuana. Hx Substance Use Treatment: Yes ([facility]). - Substances abused. Alcohol. Substance route: Oral. Frequency: Daily. Amount used: 4 pints Vodka. Age of first use: 19. Date of last use: 07/26/20 Medical History: Significant for dyslipidemia, obesity and history of appendecto my in 1983. Psychiatric History: Mr. Palomino states that his first psychiatric contact was in 2005 when he was admitted to [facility] for severe depression following of a brother from a heart attack. Mr. Carney was diagnosed with MDD and prescribed Paxil 20 mg po daily, Wellbutrin 150 mg po daily and Trazadone 100 mg po HS. Patient reports additional psychiatric hospitalization at [facility] x2, [facility] and [facility] x3. His most recent psychiatric hospitalization was at [facility] in [place] in May of 2020 for depression. States that he was prescribed zoloft 50mg + Seroquel 200mg although has not accepted medication since discharge. Patient is totally lost in follow up care. Patient requesting to resume risperdal 1mg BID as oppose to seroquel. At present patient reports sleeping poorly. Physical/Sexual Abuse/Trauma History: denies. Mental Status Exam - Mental Status Exam Alert and Oriented to: Time, Place, Person Cognitive Function: Good Patient Appearance: Well Groomed Mood: Withdrawn Affect: Mood Congruent Patient Behavior: Appropriate, Cooperative Speech Pattern: Appropriate Voice Loudness: Normal Thought Process: Intact, Goal Oriented Thought Disorder: Not Present Hallucinations: Denies Suicidal Ideation: Denies Homicidal Ideation: Denies Insight/Judgement: Poor Sleep: Poorly Appetite: Fair Muscle strength/Tone: Normal Gait/Station: Normal Psychiatric Findings - Problem List ([place] 1, 2,3) (1) Alcohol dependence with uncomplicated withdrawal Status: Chronic (2) Cannabis dependence Status: Chronic (3) Cocaine dependence Status: Chronic Qualifiers: Substance use status: uncomplicated Qualified Code(s): F14.20 - Cocaine dependence, uncomplicated (4) Substance-induced sleep disorder Status: Acute (5) Major depressive disorder, recurrent, moderate Status: Chronic - Initial Treatment Plan Initial Treatment Plan: Psychoeducation provided. Detoxification in progress. Will order Zoloft 50mg daily + Risperdal 1mg BID + Belsomra 20mg HS. Benefits and side effects discussed. Verbal consent given.
--- NOTE | 2020-07-28 11:28 | PN ---
[facility] CIWA - CIWA Score Nausea/Vomitin-No Nausea/No Vomiting Muscle Tremors: 3 Anxiety: 3 Agitation: 1-Slight > Activity Paroxysmal Sweats: 2 Orientation: 0-Oriented Tacttile Disturbances: 0-None Auditory Disturbances: 0-None Visual Disturbances: 0-None Headache: 0-None Present CIWA-Ar Total Score: 9 BHS Progress Note (SOAP) Subjective: Complaints of anxiety, sweats, and tremors. Objective: 07/28/20 11:27 Vital Signs 07/28/20 07/28/20 05:39 08:27 Temperature 97.5 F L 97.7 F Pulse Rate 56 L 56 L Respiratory 20 20 Rate Blood Pressure 128/74 128/74 O2 Sat by Pulse 97 97 Oximetry (%) Laboratory Last Values WBC 7.1 K/mm3 (4.0-10.0) 07/27/20 07:50 RBC 4.63 M/mm3 (4.00-5.60) 07/27/20 07:50 Hgb 14.3 GM/dL (11.7-16.9) 07/27/20 07:50 Hct 43.4 % (35.4-49) 07/27/20 07:50 MCV 93.8 fl (80-96) 07/27/20 07:50 MCH 30.8 pg (25.7-33.7) 07/27/20 07:50 MCHC 32.8 g/dl (32.0-35.9) 07/27/20 07:50 RDW 14.4 % (11.9-15.9) 07/27/20 07:50 Plt Count 200 K/MM3 (134-434) D 07/27/20 07:50 MPV 9.2 fl (7.5-11.1) 07/27/20 07:50 Sodium 142 mmol/L (136-145) 07/27/20 07:50 Potassium 3.9 mmol/L (3.5-5.1) 07/27/20 07:50 Chloride 108 mmol/L (98-107) H 07/27/20 07:50 Carbon Dioxide 29 mmol/L (21-32) 07/27/20 07:50 Anion Gap 5 MMOL/L (8-16) L 07/27/20 07:50 BUN 17.4 mg/dL (7-18) 07/27/20 07:50 Creatinine 0.9 mg/dL (0.55-1.3) 07/27/20 07:50 Est GFR (CKD-EPI)AfAm 116.65 07/27/20 07:50 Est GFR (CKD-EPI)NonAf 100.64 07/27/20 07:50 Random Glucose 87 mg/dL (74-106) 07/27/20 07:50 Calcium 9.0 mg/dL (8.5-10.1) 07/27/20 07:50 Total Bilirubin 0.3 mg/dL (0.2-1) 07/27/20 07:50 AST 36 U/L (15-37) 07/27/20 07:50 ALT 44 U/L (13-61) 07/27/20 07:50 Alkaline Phosphatase 91 U/L (45-117) 07/27/20 07:50 Total Protein 6.5 g/dl (6.4-8.2) 07/27/20 07:50 Albumin 3.2 g/dl (3.4-5.0) L 07/27/20 07:50 Syphilis Serology Non-reactive (NONREACTIVE) 07/27/20 07:50 Labs noted. Assessment: 07/28/20 11:27 Alert and oriented x3, in no acute respiratory distress. Full ROM, ambulatory in the unit without assistance. Skin warm to touch. Withdrawal symptoms. Plan: Continue detox protocol.
[2020-07-28] MEDS: SERTRALINE HCL 50 MG TABLET (FP) PO SCH (13:13)
[2020-07-28] MEDS: risperiDONE 1 MG TABLET PO SCH ×2 (15:13→22:27)
[2020-07-28] MEDS ORDERED: SUVOREXANT 10 MG TABLET PO PRN (22:00)
[2020-07-28] MEDS: MELATONIN 5 MG TABLETS PO SCH (22:27)
[2020-07-28] MEDS: THIAMINE HCL 100 MG TABLET (FP) PO SCH (22:27)
[2020-07-29] MEDS ORDERED: chlordiazePOXIDE HCL 10 MG CAPSULE PO PRN
[2020-07-29] MEDS: IBUPROFEN 400 MG TABLET (FP) PO PRN (05:40)
[2020-07-29] MEDS: chlordiazePOXIDE HCL 10 MG CAPSULE PO SCH ×2 (05:40→10:15)
--- NOTE | 2020-07-29 10:00 | DS ---
[facility] Detox Discharge Summary Admission Date: 07/26/20 Discharge Date: 07/29/20 - History Present History: Alcohol Dependence, Cannabis Dependence - Physical Exam Results Vital Signs: Vital Signs Temperature 98.2 F 07/29/20 05:37 Pulse Rate 63 07/29/20 05:37 Respiratory Rate 19 07/29/20 05:37 Blood Pressure 144/96 07/29/20 05:37 O2 Sat by Pulse Oximetry (%) 97 07/29/20 05:37 Pertinent Admission Physical Exam Findings: Vital Signs Temperature 98.2 F 07/29/20 05:37 Pulse Rate 63 07/29/20 05:37 Respiratory Rate 19 07/29/20 05:37 Blood Pressure 144/96 07/29/20 05:37 O2 Sat by Pulse Oximetry (%) 97 07/29/20 05:37 Laboratory Tests 07/27/20 07/27/20 07/27/20 07:50 07:50 07:50 WBC 7.1 RBC 4.63 Hgb 14.3 Hct 43.4 MCV 93.8 MCH 30.8 MCHC 32.8 RDW 14.4 Plt Count 200 D MPV 9.2 Sodium 142 Potassium 3.9 Chloride 108 H Carbon Dioxide 29 Anion Gap 5 L BUN 17.4 Creatinine 0.9 Est GFR (CKD-EPI)AfAm 116.65 Est GFR (CKD-EPI)NonAf 100.64 Random Glucose 87 Calcium 9.0 Total Bilirubin 0.3 AST 36 ALT 44 Alkaline Phosphatase 91 Total Protein 6.5 Albumin 3.2 L Syphilis Serology Non-reactive COVID-19 (MARSHA) 07/27/20 08:20 WBC RBC Hgb Hct MCV MCH MCHC RDW Plt Count MPV Sodium Potassium Chloride Carbon Dioxide Anion Gap BUN Creatinine Est GFR (CKD-EPI)AfAm Est GFR (CKD-EPI)NonAf Random Glucose Calcium Total Bilirubin AST ALT Alkaline Phosphatase Total Protein Albumin Syphilis Serology COVID-19 (MARSHA) Not detected aaox3 ambulating no acute distress lungs CTA - Treatment Hospital Course: Detox Protocol Followed, Detoxed Safely, Responded well, Discharged Condition Good, Rehab Referral Accepted - Medication Discharge Medications: Ambulatory Orders Risperdal - 12/19/19 Quetiapine Fumarate [Seroquel -] 200 mg PO HS 07/27/20 - Diagnosis (1) Alcohol dependence with uncomplicated withdrawal Current Visit: Yes Status: Chronic (2) Elevated blood pressure reading without diagnosis of hypertension Current Visit: Yes Status: Acute (3) Substance-induced sleep disorder Current Visit: Yes Status: Acute (4) Cannabis dependence Current Visit: Yes Status: Chronic (5) Cocaine dependence Current Visit: Yes Status: Chronic Qualifiers: Substance use status: uncomplicated Qualified Code(s): F14.20 - Cocaine dependence, uncomplicated (6) HLD (hyperlipidemia) Current Visit: Yes Status: Chronic Qualifiers: Hyperlipidemia type: unspecified Qualified Code(s): E78.5 - Hyperlipidemia, unspecified (7) Major depressive disorder, recurrent, moderate Current Visit: Yes Status: Chronic (8) Obesity Current Visit: Yes Status: Chronic Qualifiers: Obesity classification: adult class 3 (BMI >= 40) Body mass index: BMI 40.0-44.9 (9) Sedative hypnotic or anxiolytic dependence Current Visit: Yes Status: Chronic (10) Insomnia Current Visit: No Status: Acute Qualifiers: Insomnia type: unspecified Qualified Code(s): G47.00 - Insomnia, unspecified (11) Posttraumatic stress disorder Current Visit: No Status: Acute (12) Sedative, hypnotic or anxiolytic abuse Current Visit: No Status: Acute (13) Sedative, hypnotic or anxiolytic use, unspecified with withdrawal, uncomplicated Current Visit: No Status: Acute (14) Substance-induced anxiety disorder Current Visit: No Status: Acute (15) Substance-induced sleep disorder Current Visit: No Status: Acute (16) Alcohol dependence Current Visit: No Status: Chronic Qualifiers: Substance use status: uncomplicated Qualified Code(s): F10.20 - Alcohol dependence, uncomplicated (17) Alcohol dependence Current Visit: No Status: Chronic Qualifiers: Substance use status: uncomplicated Qualified Code(s): F10.20 - Alcohol dependence, uncomplicated (18) Cannabis dependence Current Visit: No Status: Chronic (19) Chronic alcoholism Current Visit: No Status: Chronic (20) Cocaine dependence Current Visit: No Status: Chronic (21) MDD (major depressive disorder), recurrent episode, severe Current Visit: No Status: Chronic (22) Nicotine dependence Current Visit: No Status: Chronic Qualifiers: Nicotine product type: cigarettes Substance use status: uncomplicated Qualified Code(s): F17.210 - Nicotine dependence, cigarettes, uncomplicated (23) Nicotine dependence Current Visit: No Status: Chronic - AMA Did Patient Leave Against Medical Advice: No
[2020-07-29] MEDS: NICOTINE 14 MG/24 HOURS TOPICAL PATCH TD SCH (10:14)
[2020-07-29] MEDS: risperiDONE 1 MG TABLET PO SCH (10:15)
[2020-07-29] MEDS: PRENATAL VITAMINS W/ FOLIC ACID TABLET (FP) PO SCH (10:15)
[2020-07-29] MEDS: SERTRALINE HCL 50 MG TABLET (FP) PO SCH (10:15)
[2020-07-29] MEDS: amLODIPine BESYLATE 5 MG TABLET (FP) PO SCH (10:15)
[2020-07-29 12:08] VITALS: BP 143/78; PULSE 67; TEMP 97.3
--- NOTE | 2020-07-29 14:09 | EKG ---
Test Reason : Blood Pressure : / mmHG Vent. Rate : 081 BPM Atrial Rate : 081 BPM P-R Int : 152 ms QRS Dur : 092 ms QT Int : 370 ms P-R-T Axes : 106 144 141 degrees QTc Int : 429 ms SUSPECT ARM LEAD REVERSAL, INTERPRETATION ASSUMES NO REVERSAL NORMAL SINUS RHYTHM RIGHT AXIS DEVIATION NONSPECIFIC ST AND T WAVE ABNORMALITY ABNORMAL ECG NO PREVIOUS ECGS AVAILABLE Confirmed by GANESH JANE MD ([id number]) on 07/29/2020 2:09:21 PM Referred By: Yaw Moreland Confirmed By:GANESH JANE MD
[2020-07-30] MEDS ORDERED: chlordiazePOXIDE HCL 10 MG CAPSULE PO SCH (05:00)
[2020-07-31] MEDS ORDERED: chlordiazePOXIDE HCL 10 MG CAPSULE PO ONE (05:00)
== END 2020-07-29 12:28 | disposition other institution (70) | DRG 774 ==
LOC: YASAS 16:44 → Y6N 20:14
PROVIDERS: ADMIT Allergy & Immunology; ATTEND Allergy & Immunology
PROC: HZ2ZZZZ Detoxification Services for Substance Abuse Treatment (ICD-10-PCS; principal; 2020-07-26)
DX: F10.230 Alcohol dependence with withdrawal, uncomplicated (principal); F14.20 Cocaine dependence, uncomplicated; F13.20 Sedative, hypnotic or anxiolytic dependence, uncomplicated; F12.20 Cannabis dependence, uncomplicated; F17.210 Nicotine dependence, cigarettes, uncomplicated; F19.280 Other psychoactive substance dependence with psychoactive substance-induced anxiety disorder; F19.282 Other psychoactive substance dependence with psychoactive substance-induced sleep disorder; F33.1 Major depressive disorder, recurrent, moderate; F43.10 Post-traumatic stress disorder, unspecified; E78.5 Hyperlipidemia, unspecified; G47.00 Insomnia, unspecified; R03.0 Elevated blood-pressure reading, without diagnosis of hypertension; E66.01 Morbid (severe) obesity due to excess calories; Z68.41 Body mass index [BMI] 40.0-44.9, adult
CPT/HCPCS: 36415; 80053; 85027; 86780; 93005; 93010; J2794; U0003

== ENCOUNTER 2020-07-29 12:47 | Inpatient (IN) | payer OTHER ==
--- NOTE | 2020-07-29 12:00 | HP ---
[facility] Rehab Assess/Revision - Admission History Ad[facility] to [facility]hab from[facility] - Findings Detox History & Physical reviewed: Yes Concur with findings: Yes Inpatient Rehab Admission - Rehab Decision to Admit Inpatient rehab admission?: Yes - Initial Determination Are CD services needed?: Yes Free of communicable disease: Yes Not in need of hospitalization: Yes - Rehab Admission Criteria Previous failed treatment: Yes Poor recovery environment: Yes Comorbidities: Yes Lacks judgement: Yes Patient is meeting Inpatient Rehab admission criteria:: Yes
[2020-07-29] MEDS ORDERED: P-EPHED 60MG/TRIPROLIDI 2.5MG TABLET PO PRN (13:06)
[2020-07-29] MEDS ORDERED: MAGNESIUM CITRATE 300 ML BOTTLE PO PRN (13:06)
[2020-07-29] MEDS ORDERED: MAG HYDROX/AL HYDROX/SIMETH 30 ML UNIT-DOSE CUP PO PRN (13:06)
[2020-07-29] MEDS ORDERED: MAGNESIUM HYDROX 2400MG/30ML ORAL SUSPENSION 30 ML CUP PO PRN (13:06)
[2020-07-29] MEDS ORDERED: LOPERAMIDE HCL 2 MG CAPSULE PO PRN (13:06)
[2020-07-29] MEDS ORDERED: guaiFENesin 200 MG/10 ML 10 ML UNIT-DOSE CUPS PO PRN (13:06)
[2020-07-29] MEDS ORDERED: ACETAMINOPHEN 325 MG TABLET (FP) PO PRN (13:06)
[2020-07-29] MEDS ORDERED: MENTHOL/PHENOL 1 EACH UD MM PRN (13:06)
--- NOTE | 2020-07-29 13:54 | PN ---
[facility] Progress Note Note: Patient was referred from detox today for inpatient rehabilitation treatment for alcohol, cocaine and cannabis . He was seen by CHAVA Barriga on 05/27/20 while in detox and he was prescribed Zoloft 50 mg/day, Risperdal 1 mg/bid and Belsomra 10 mg/hs prn for insomnia. Will continue same medications
[2020-07-29] MEDS: hydrOXYzine PAMOATE 25 MG CAPSULE (FP) PO PRN ×2 (14:42→21:17)
[2020-07-29] MEDS: THIAMINE HCL 100 MG TABLET (FP) PO SCH (21:16)
[2020-07-29] MEDS: risperiDONE 1 MG TABLET PO SCH (21:17)
[2020-07-29] MEDS: IBUPROFEN 400 MG TABLET (FP) PO PRN (21:17)
[2020-07-29] MEDS: MELATONIN 5 MG TABLETS PO SCH (22:30)
[2020-07-29] MEDS: SUVOREXANT 10 MG TABLET PO PRN (22:30)
[2020-07-30] MEDS: PRENATAL VITAMINS W/ FOLIC ACID TABLET (FP) PO SCH (10:04)
[2020-07-30] MEDS: risperiDONE 1 MG TABLET PO SCH ×2 (10:04→21:17)
[2020-07-30] MEDS: amLODIPine BESYLATE 5 MG TABLET (FP) PO SCH (10:04)
[2020-07-30] MEDS: SERTRALINE HCL 50 MG TABLET (FP) PO SCH (10:04)
[2020-07-30] MEDS: IBUPROFEN 400 MG TABLET (FP) PO PRN ×2 (10:05→21:18)
[2020-07-30] MEDS: NICOTINE 14 MG/24 HOURS TOPICAL PATCH TD SCH (10:06)
[2020-07-30] MEDS ORDERED: FLU VACCINE (FLULAVAL) PF 60 MCG/0.5 ML SYRINGE 2020-2021 IM ONE (12:00)
[2020-07-30] MEDS ORDERED: PNEUMOC 13-VAL CONJ-DIP CRM/PF 0.5 ML DISP.SYRIN IM ONE (12:38)
[2020-07-30] MEDS: THIAMINE HCL 100 MG TABLET (FP) PO SCH (21:17)
[2020-07-30] MEDS: hydrOXYzine PAMOATE 25 MG CAPSULE (FP) PO PRN (21:17)
[2020-07-30] MEDS: MELATONIN 5 MG TABLETS PO SCH (21:40)
[2020-07-30] MEDS: SUVOREXANT 10 MG TABLET PO PRN (23:24)
[2020-07-31] MEDS: hydrOXYzine PAMOATE 25 MG CAPSULE (FP) PO PRN ×2 (09:48→21:24)
[2020-07-31] MEDS: amLODIPine BESYLATE 5 MG TABLET (FP) PO SCH (09:48)
[2020-07-31] MEDS: IBUPROFEN 400 MG TABLET (FP) PO PRN ×2 (09:48→21:24)
[2020-07-31] MEDS: SERTRALINE HCL 50 MG TABLET (FP) PO SCH (09:48)
[2020-07-31] MEDS: risperiDONE 1 MG TABLET PO SCH ×2 (09:48→21:26)
[2020-07-31] MEDS: PRENATAL VITAMINS W/ FOLIC ACID TABLET (FP) PO SCH (09:48)
[2020-07-31] MEDS: NICOTINE 14 MG/24 HOURS TOPICAL PATCH TD SCH (10:20)
[2020-07-31] MEDS: MELATONIN 5 MG TABLETS PO SCH (21:26)
[2020-07-31] MEDS: THIAMINE HCL 100 MG TABLET (FP) PO SCH (21:26)
[2020-07-31] MEDS: SUVOREXANT 10 MG TABLET PO PRN (23:02)
[2020-08-01 06:44] VITALS: BP 136/78; PULSE 71; TEMP 97.9
--- NOTE | 2020-08-01 08:37 | DS ---
[facility] Rehab Discharge Summary - [facility] Rehab Discharge Summary Admission Date: 07/29/20 Discharge Date: 08/01/20 - History Pertinent Past History: 50 years old male with a long history of alcohol dependence. His last admission was for the period 12/14/2019- 12/29/2019 and he reports that he relapsed on February 12, 2020. He reports that he drinks 4 pints of vodka daily. He has medical history of hyperlipidemia and obesity, psych. history and suicidal ideation at this time. He is unemployed, lives alone in an apartment and denies any legal issues. 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 - Discharge Physical Exam Vital Signs: Vital Signs Temperature 97.9 F 08/01/20 05:59 Pulse Rate 71 08/01/20 05:59 Respiratory Rate 18 08/01/20 05:59 Blood Pressure 136/78 08/01/20 05:59 O2 Sat by Pulse Oximetry (%) 96 08/01/20 05:59 Pertinent Admission Physical Exam Findings: Physical General Appearance: No apparent distress HEENTM: normocephalic, PERRLA, EOMI Respiratory: No Respiratory Distress Neck: supple Abdominal: +Bowel Sounds Musculoskeletal: full weight bearing, full ROM, steady gait - Treatment Discharge Condition: Discharge condition good (Medically stable for discharge.), Outpatient referral accepted (Patient was referred to the [facility].) Hospital Course: patient attended groups, had 1:1 with his counselor, was adherent to his medication regimen and treatment plan. - Medication Discharge Medications: Ambulatory Orders Risperdal - 12/19/19 Quetiapine Fumarate [Seroquel -] 200 mg PO HS 07/27/20 - Medication-Assisted Treatment (MAT) Medication-Assisted Treatment (MAT): No - Discharge Instructions Diet, activity, other medical instructions: Diet: as tolerated Activity: as tolerated Other medical instructions: please follow up with aftercare referral - Diagnosis (1) Alcohol dependence Current Visit: No Status: Chronic Qualifiers: Substance use status: uncomplicated Qualified Code(s): F10.20 - Alcohol dependence, uncomplicated (2) Cannabis dependence Current Visit: No Status: Chronic (3) Cocaine dependence Current Visit: No Status: Chronic Qualifiers: Substance use status: uncomplicated Qualified Code(s): F14.20 - Cocaine dependence, uncomplicated - Follow-up Referral Minutes to complete discharge: 15 - AMA Did Patient Leave Against Medical Advice: No
== END 2020-08-01 08:46 | disposition home or self-care (01) | DRG 772 ==
LOC: YASAS 12:47 → Y3W 12:48
PROVIDERS: ADMIT Allergy & Immunology; ATTEND Allergy & Immunology
PROC: HZ42ZZZ Group Counseling for Substance Abuse Treatment, Cognitive-Behavioral (ICD-10-PCS; principal; 2020-07-29)
DX: F10.20 Alcohol dependence, uncomplicated (principal); F14.20 Cocaine dependence, uncomplicated; F17.210 Nicotine dependence, cigarettes, uncomplicated; E78.5 Hyperlipidemia, unspecified; E66.01 Morbid (severe) obesity due to excess calories; Z68.41 Body mass index [BMI] 40.0-44.9, adult
CPT/HCPCS: 36415; 87389; G0008; J2794; Q2036

== ENCOUNTER 2020-11-22 16:16 | Inpatient (IN) | payer OTHER ==
[2020-11-22 17:53] VITALS: BMI 40.8
[2020-11-22] MEDS ORDERED: IBUPROFEN 400 MG TABLET (FP) PO PRN (18:40)
[2020-11-22] MEDS ORDERED: BISMUTH SUBSALICYLATE 524 MG/30 ML UD PO PRN (18:40)
[2020-11-22] MEDS ORDERED: ONDANSETRON *ODT* 4 MG TABLET SL PRN (18:40)
[2020-11-22] MEDS ORDERED: MAGNESIUM CITRATE 300 ML BOTTLE PO PRN (18:40)
[2020-11-22] MEDS ORDERED: METHOCARBAMOL 500 MG TABLET PO PRN (18:40)
[2020-11-22] MEDS ORDERED: MAGNESIUM HYDROX 2400MG/30ML ORAL SUSPENSION 30 ML CUP PO PRN (18:40)
[2020-11-22] MEDS ORDERED: MAG HYDROX/AL HYDROX/SIMETH 30 ML UNIT-DOSE CUP PO PRN (18:40)
[2020-11-22] MEDS ORDERED: NICOTINE POLACRILEX 2 MG GUM BUC PRN (18:40)
[2020-11-22] MEDS ORDERED: MENTHOL/PHENOL 1 EACH UD MM PRN (18:40)
[2020-11-22] MEDS: diazePAM 5 MG TABLET PO PRN (20:19)
[2020-11-22] MEDS ORDERED: MELATONIN 5 MG TABLETS PO SCH (22:00)
[2020-11-22] MEDS: hydrOXYzine PAMOATE 25 MG CAPSULE (FP) PO SCH (22:45)
[2020-11-22] MEDS: diazePAM 5 MG TABLET PO SCH (22:45)
[2020-11-22] MEDS: THIAMINE HCL 100 MG TABLET (FP) PO SCH (22:45)
[2020-11-23] MEDS: diazePAM 5 MG TABLET PO SCH ×4 (05:22→22:12)
[2020-11-23] MEDS: hydrOXYzine PAMOATE 25 MG CAPSULE (FP) PO SCH ×5 (05:23→22:13)
[2020-11-23] MEDS: NICOTINE 14 MG/24 HOURS TOPICAL PATCH TD SCH (10:55)
[2020-11-23] MEDS: PRENATAL VITAMINS W/ FOLIC ACID TABLET (FP) PO SCH (10:55)
[2020-11-23 13:31] LABS: HEMATOCRIT 41.1 % (35.4-49); HEMOGLOBIN 13.8 GM/dL (11.7-16.9); MCH 30.9 pg (25.7-33.7); MCHC 33.5 g/dl (32.0-35.9); MEAN CELL VOLUME 92.2 fl (80-96); PLATELET COUNT 228 K/MM3 (134-434); POTASSIUM 3.6 mmol/L (3.5-5.1); RBC 4.46 M/mm3 (4.00-5.60); RDW 14.8 % (11.9-15.9); WHITE BLOOD COUNT 7.6 K/mm3 (4.0-10.0)
[2020-11-23 13:39] LABS: ALBUMIN 3.2 g/dl (3.4-5.0); CALCIUM 8.2 mg/dL (8.5-10.1)
[2020-11-23 13:44] LABS: CREATININE 0.9 mg/dL (0.55-1.3)
[2020-11-23] MEDS: diazePAM 5 MG TABLET PO PRN (20:44)
[2020-11-23] MEDS: THIAMINE HCL 100 MG TABLET (FP) PO SCH (22:12)
[2020-11-23] MEDS: risperiDONE 1 MG TABLET PO SCH (22:13)
[2020-11-23] MEDS: SUVOREXANT 10 MG TABLET PO PRN (22:15)
[2020-11-24] MEDS: diazePAM 5 MG TABLET PO SCH ×3 (05:14→22:36)
[2020-11-24] MEDS: hydrOXYzine PAMOATE 25 MG CAPSULE (FP) PO SCH ×5 (05:15→22:35)
[2020-11-24] MEDS: NICOTINE 14 MG/24 HOURS TOPICAL PATCH TD SCH (10:06)
[2020-11-24] MEDS: PRENATAL VITAMINS W/ FOLIC ACID TABLET (FP) PO SCH (10:06)
[2020-11-24] MEDS: diazePAM 5 MG TABLET PO PRN (10:11)
[2020-11-24] MEDS: SERTRALINE HCL 50 MG TABLET (FP) PO SCH (10:12)
[2020-11-24] MEDS: risperiDONE 1 MG TABLET PO SCH ×2 (10:13→22:35)
[2020-11-24] MEDS: THIAMINE HCL 100 MG TABLET (FP) PO SCH (22:37)
[2020-11-24] MEDS: SUVOREXANT 10 MG TABLET PO PRN (22:39)
[2020-11-25] MEDS: hydrOXYzine PAMOATE 25 MG CAPSULE (FP) PO SCH ×5 (05:02→22:16)
[2020-11-25] MEDS: diazePAM 5 MG TABLET PO SCH ×2 (05:03→17:59)
[2020-11-25] MEDS: risperiDONE 1 MG TABLET PO SCH ×2 (10:10→22:16)
[2020-11-25] MEDS: PRENATAL VITAMINS W/ FOLIC ACID TABLET (FP) PO SCH (10:10)
[2020-11-25] MEDS: NICOTINE 14 MG/24 HOURS TOPICAL PATCH TD SCH (10:10)
[2020-11-25] MEDS: SERTRALINE HCL 50 MG TABLET (FP) PO SCH (10:10)
[2020-11-25] MEDS: diazePAM 5 MG TABLET PO PRN ×2 (10:28→14:33)
[2020-11-25] MEDS: THIAMINE HCL 100 MG TABLET (FP) PO SCH (22:15)
[2020-11-25] MEDS: SUVOREXANT 10 MG TABLET PO PRN (22:18)
[2020-11-26] MEDS: hydrOXYzine PAMOATE 25 MG CAPSULE (FP) PO SCH ×2 (05:25→11:27)
[2020-11-26] MEDS ORDERED: diazePAM 5 MG TABLET PO ONE (06:00)
[2020-11-26 09:07] VITALS: BP 138/84; PULSE 73; TEMP 97.3
[2020-11-26] MEDS: PRENATAL VITAMINS W/ FOLIC ACID TABLET (FP) PO SCH (09:36)
[2020-11-26] MEDS: SERTRALINE HCL 50 MG TABLET (FP) PO SCH (09:37)
[2020-11-26] MEDS: NICOTINE 14 MG/24 HOURS TOPICAL PATCH TD SCH (09:37)
[2020-11-26] MEDS: risperiDONE 1 MG TABLET PO SCH (09:37)
== END 2020-11-26 11:25 | disposition other institution (70) | DRG 774 ==
LOC: YASAS 16:16 → Y6N 18:44 → Y3N 11-25 18:46
PROVIDERS: ADMIT Allergy & Immunology; ATTEND Allergy & Immunology
PROC: HZ2ZZZZ Detoxification Services for Substance Abuse Treatment (ICD-10-PCS; principal; 2020-11-22)
DX: F10.230 Alcohol dependence with withdrawal, uncomplicated (principal); F13.230 Sedative, hypnotic or anxiolytic dependence with withdrawal, uncomplicated; F14.20 Cocaine dependence, uncomplicated; F17.210 Nicotine dependence, cigarettes, uncomplicated; F33.1 Major depressive disorder, recurrent, moderate; F19.282 Other psychoactive substance dependence with psychoactive substance-induced sleep disorder; F19.24 Other psychoactive substance dependence with psychoactive substance-induced mood disorder; F43.10 Post-traumatic stress disorder, unspecified; E78.5 Hyperlipidemia, unspecified; R03.0 Elevated blood-pressure reading, without diagnosis of hypertension; R74.01 Elevation of levels of liver transaminase levels; E66.01 Morbid (severe) obesity due to excess calories; Z68.41 Body mass index [BMI] 40.0-44.9, adult
CPT/HCPCS: 36415; 80053; 85027; 86780; 87389; C9803; J2794; U0003

== ENCOUNTER 2020-11-26 11:04 | Inpatient (IN) | payer OTHER ==
[2020-11-26] MEDS ORDERED: MAGNESIUM HYDROX 2400MG/30ML ORAL SUSPENSION 30 ML CUP PO PRN (12:23)
[2020-11-26] MEDS ORDERED: NICOTINE POLACRILEX 2 MG GUM BUC PRN (12:23)
[2020-11-26] MEDS ORDERED: IBUPROFEN 400 MG TABLET (FP) PO PRN (12:23)
[2020-11-26] MEDS ORDERED: P-EPHED 60MG/TRIPROLIDI 2.5MG TABLET PO PRN (12:23)
[2020-11-26] MEDS ORDERED: MAGNESIUM CITRATE 300 ML BOTTLE PO PRN (12:23)
[2020-11-26] MEDS ORDERED: guaiFENesin 200 MG/10 ML 10 ML UNIT-DOSE CUPS PO PRN (12:23)
[2020-11-26] MEDS ORDERED: MENTHOL/PHENOL 1 EACH UD MM PRN (12:23)
[2020-11-26] MEDS ORDERED: ACETAMINOPHEN 325 MG TABLET (FP) PO PRN (12:23)
[2020-11-26] MEDS ORDERED: MAG HYDROX/AL HYDROX/SIMETH 30 ML UNIT-DOSE CUP PO PRN (12:23)
[2020-11-26] MEDS ORDERED: LOPERAMIDE HCL 2 MG CAPSULE PO PRN (12:23)
[2020-11-26] MEDS: hydrOXYzine PAMOATE 25 MG CAPSULE (FP) PO PRN ×2 (14:57→21:53)
[2020-11-26] MEDS: THIAMINE HCL 100 MG TABLET (FP) PO SCH (21:52)
[2020-11-26] MEDS: SUVOREXANT 20 MG TABLET PO PRN (21:52)
[2020-11-26] MEDS: MELATONIN 5 MG TABLETS PO SCH (21:52)
[2020-11-26] MEDS: risperiDONE 1 MG TABLET PO SCH (21:52)
[2020-11-26] MEDS ORDERED: risperiDONE 1 MG TABLET PO SCH (22:00)
[2020-11-27] MEDS ORDERED: SERTRALINE HCL 50 MG TABLET (FP) PO SCH (10:00)
[2020-11-27] MEDS: PRENATAL VITAMINS W/ FOLIC ACID TABLET (FP) PO SCH (10:18)
[2020-11-27] MEDS: hydrOXYzine PAMOATE 25 MG CAPSULE (FP) PO PRN (10:18)
[2020-11-27] MEDS: SERTRALINE HCL 50 MG TABLET (FP) PO SCH (10:18)
[2020-11-27] MEDS: risperiDONE 1 MG TABLET PO SCH ×2 (10:18→22:19)
[2020-11-27] MEDS: NICOTINE 7 MG/24 HOURS TOPICAL PATCH TD SCH (10:19)
[2020-11-27] MEDS ORDERED: IBUPROFEN 600 MG TABLET (FP) PO PRN (11:31)
[2020-11-27] MEDS: LIDOCAINE 5% TOPICAL PATCH TP SCH (14:10)
[2020-11-27] MEDS: METHOCARBAMOL 500 MG TABLET PO SCH ×3 (14:11→22:19)
[2020-11-27] MEDS: THIAMINE HCL 100 MG TABLET (FP) PO SCH (22:19)
[2020-11-27] MEDS: MELATONIN 5 MG TABLETS PO SCH (22:19)
[2020-11-27] MEDS: LIDOCAINE PATCH REMOVAL MC SCH (22:19)
[2020-11-27] MEDS: SUVOREXANT 20 MG TABLET PO PRN (22:20)
[2020-11-28] MEDS: NICOTINE 7 MG/24 HOURS TOPICAL PATCH TD SCH (10:28)
[2020-11-28] MEDS: SERTRALINE HCL 50 MG TABLET (FP) PO SCH (10:28)
[2020-11-28] MEDS: PRENATAL VITAMINS W/ FOLIC ACID TABLET (FP) PO SCH (10:28)
[2020-11-28] MEDS: risperiDONE 1 MG TABLET PO SCH ×2 (10:28→21:11)
[2020-11-28] MEDS: METHOCARBAMOL 500 MG TABLET PO SCH ×4 (10:28→21:11)
[2020-11-28] MEDS: LIDOCAINE 5% TOPICAL PATCH TP SCH (10:28)
[2020-11-28] MEDS: hydrOXYzine PAMOATE 25 MG CAPSULE (FP) PO PRN (10:28)
[2020-11-28] MEDS: THIAMINE HCL 100 MG TABLET (FP) PO SCH (21:10)
[2020-11-28] MEDS: LIDOCAINE PATCH REMOVAL MC SCH (21:11)
[2020-11-28] MEDS: MELATONIN 5 MG TABLETS PO SCH (21:11)
[2020-11-28] MEDS: SUVOREXANT 20 MG TABLET PO PRN (22:11)
[2020-11-29] MEDS: SERTRALINE HCL 50 MG TABLET (FP) PO SCH (09:45)
[2020-11-29] MEDS: risperiDONE 1 MG TABLET PO SCH ×2 (09:45→21:59)
[2020-11-29] MEDS: PRENATAL VITAMINS W/ FOLIC ACID TABLET (FP) PO SCH (09:45)
[2020-11-29] MEDS: METHOCARBAMOL 500 MG TABLET PO SCH ×4 (09:45→22:04)
[2020-11-29] MEDS: NICOTINE 7 MG/24 HOURS TOPICAL PATCH TD SCH (09:46)
[2020-11-29] MEDS: LIDOCAINE 5% TOPICAL PATCH TP SCH (09:46)
[2020-11-29] MEDS: hydrOXYzine PAMOATE 25 MG CAPSULE (FP) PO PRN (14:50)
[2020-11-29] MEDS: THIAMINE HCL 100 MG TABLET (FP) PO SCH (21:58)
[2020-11-29] MEDS: SUVOREXANT 20 MG TABLET PO PRN (21:58)
[2020-11-29] MEDS: MELATONIN 5 MG TABLETS PO SCH (21:59)
[2020-11-29] MEDS: LIDOCAINE PATCH REMOVAL MC SCH (22:04)
[2020-11-30] MEDS: hydrOXYzine PAMOATE 25 MG CAPSULE (FP) PO PRN ×3 (03:06→13:52)
[2020-11-30] MEDS: risperiDONE 1 MG TABLET PO SCH ×2 (10:00→21:45)
[2020-11-30] MEDS: METHOCARBAMOL 500 MG TABLET PO SCH ×4 (10:00→21:45)
[2020-11-30] MEDS: SERTRALINE HCL 50 MG TABLET (FP) PO SCH (10:00)
[2020-11-30] MEDS: PRENATAL VITAMINS W/ FOLIC ACID TABLET (FP) PO SCH (10:00)
[2020-11-30] MEDS: LIDOCAINE 5% TOPICAL PATCH TP SCH (10:00)
[2020-11-30] MEDS: NICOTINE 7 MG/24 HOURS TOPICAL PATCH TD SCH (10:02)
[2020-11-30] MEDS: MELATONIN 5 MG TABLETS PO SCH (21:45)
[2020-11-30] MEDS: SUVOREXANT 20 MG TABLET PO PRN (21:45)
[2020-11-30] MEDS: THIAMINE HCL 100 MG TABLET (FP) PO SCH (21:45)
[2020-11-30] MEDS: LIDOCAINE PATCH REMOVAL MC SCH (23:34)
[2020-12-01] MEDS: hydrOXYzine PAMOATE 25 MG CAPSULE (FP) PO PRN ×2 (02:46→14:53)
[2020-12-01] MEDS: PRENATAL VITAMINS W/ FOLIC ACID TABLET (FP) PO SCH (10:00)
[2020-12-01] MEDS: SERTRALINE HCL 50 MG TABLET (FP) PO SCH (10:00)
[2020-12-01] MEDS: LIDOCAINE 5% TOPICAL PATCH TP SCH (10:00)
[2020-12-01] MEDS: risperiDONE 1 MG TABLET PO SCH ×2 (10:00→21:14)
[2020-12-01] MEDS: METHOCARBAMOL 500 MG TABLET PO SCH ×4 (10:00→21:14)
[2020-12-01] MEDS: NICOTINE 7 MG/24 HOURS TOPICAL PATCH TD SCH (10:01)
[2020-12-01] MEDS: SUVOREXANT 20 MG TABLET PO PRN (21:13)
[2020-12-01] MEDS: MELATONIN 5 MG TABLETS PO SCH (21:14)
[2020-12-01] MEDS: THIAMINE HCL 100 MG TABLET (FP) PO SCH (21:14)
[2020-12-01] MEDS: LIDOCAINE PATCH REMOVAL MC SCH (21:15)
[2020-12-02] MEDS: hydrOXYzine PAMOATE 25 MG CAPSULE (FP) PO PRN (01:01)
[2020-12-02 07:21] VITALS: BP 125/68; PULSE 97; TEMP 97.5
[2020-12-02] MEDS: PRENATAL VITAMINS W/ FOLIC ACID TABLET (FP) PO SCH (09:45)
[2020-12-02] MEDS: METHOCARBAMOL 500 MG TABLET PO SCH (09:45)
[2020-12-02] MEDS: SERTRALINE HCL 50 MG TABLET (FP) PO SCH (09:45)
[2020-12-02] MEDS: risperiDONE 1 MG TABLET PO SCH (09:45)
[2020-12-02] MEDS: LIDOCAINE 5% TOPICAL PATCH TP SCH (09:45)
[2020-12-02] MEDS: NICOTINE 7 MG/24 HOURS TOPICAL PATCH TD SCH (09:47)
== END 2020-12-02 10:02 | disposition home or self-care (01) | DRG 772 ==
LOC: YASAS 11:04 → Y3W 11:05
PROVIDERS: ADMIT Allergy & Immunology; ATTEND Allergy & Immunology
PROC: HZ42ZZZ Group Counseling for Substance Abuse Treatment, Cognitive-Behavioral (ICD-10-PCS; principal; 2020-11-26)
DX: F10.20 Alcohol dependence, uncomplicated (principal); F14.20 Cocaine dependence, uncomplicated; F13.20 Sedative, hypnotic or anxiolytic dependence, uncomplicated; F17.210 Nicotine dependence, cigarettes, uncomplicated; F39 Unspecified mood [affective] disorder; F43.10 Post-traumatic stress disorder, unspecified; E78.5 Hyperlipidemia, unspecified; M54.5 Low back pain; E66.01 Morbid (severe) obesity due to excess calories; Z68.41 Body mass index [BMI] 40.0-44.9, adult
CPT/HCPCS: C9803; J2794; U0003